=== PATIENT | male | born 1985 | race Caucasian/White ===

== ENCOUNTER 2017-01-31 18:42 | Emergency (ER) | payer SELFPAY ==
[2017-01-31 18:50] VITALS: BP 165/95; PULSE 82; TEMP 98.5; BMI 26.6
[2017-01-31] MEDS ORDERED: OXYMETAZOLINE 0.05% NASAL SOLUTION 15 ML BOTTLE NS PRN (20:36)
[2017-01-31] MEDS ORDERED: ACETAMINOPHEN 325 MG TABLET (FP) PO ONE (20:39)
[2017-01-31] MEDS ORDERED: ACETAMINOPHEN 325 MG TABLET (FP) ONE (21:02)
[2017-01-31] MEDS ORDERED: SODIUM CHLORIDE 0.9% 1000 ML INFUS.BAG IV ONE (21:04)
[2017-01-31 21:05] LABS: BASOPHIL 0.6 % (0-2.0); EOSINOPHIL 0.2 % (0-4.5); MCH 31.4 pg (25.7-33.7); MCHC 34.3 g/dl (32.0-35.9); MEAN CELL VOLUME 91.7 fl (80-96); MEAN PLT VOLUME 8.9 fl (7.5-11.1); NEUTROPHILS 84.4 % (42.8-82.8); PLATELET COUNT 278 K/MM3 (134-434); RDW 12.4 % (11.9-15.9)
[2017-01-31 21:09] LABS: VENOUS PH 7.44 (7.32-7.42)
[2017-01-31 21:37] LABS: ALBUMIN 3.1 g/dl (3.4-5.0); ALK PHOS 162 U/L (45-117); ANION GAP 10 (8-16); BILIRUBIN,TOTAL 0.4 mg/dL (0.2-1.0); CALCIUM 8.7 mg/dL (8.5-10.1); CO2 29 mmol/L (21-32); CREATININE 0.8 mg/dL (0.7-1.3); SGOT/AST 5 U/L (15-37); SGPT/ALT 13 U/L (12-78); TOT PROT 7.4 g/dl (6.4-8.2)
[2017-01-31 21:44] LABS: GLUCOSE,RANDOM 564 mg/dL (74-106)
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
[2017-01-31] MEDS ORDERED: INSULIN REGULAR HUMAN 100 UNITS/ML *VIAL IVPUSH ONE (22:18)
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
== END 2017-02-01 00:15 | disposition home or self-care (01) ==
LOC: JER 18:42 → JERFT 18:42 → JER 02-01 00:15
PROC: 3E033VG Introduction of Insulin into Peripheral Vein, Percutaneous Approach (ICD-10-PCS; principal; 2017-01-31)
PROC: 3E0337Z Introduction of Electrolytic and Water Balance Substance into Peripheral Vein, Percutaneous Approach (ICD-10-PCS; 2017-01-31)
DX: S09.92XD Unspecified injury of nose, subsequent encounter (principal); E13.8 Other specified diabetes mellitus with unspecified complications; R51 Headache; F17.210 Nicotine dependence, cigarettes, uncomplicated
CPT/HCPCS: 36415; 70486-TC; 80053; 82009; 82803; 83735; 85025; 99282-25

== ENCOUNTER 2017-02-03 21:12 | Inpatient (IN) | payer OTHER ==
[2017-02-03 21:52] VITALS: BMI 25.0
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
[2017-02-03] MEDS ORDERED: SODIUM CHLORIDE 0.9% 500 ML INFUS.BAG IV ONE (22:19)
[2017-02-03] MEDS ORDERED: AMPICILLIN NA/SULBACTAM NA 1.5 GM in SODIUM CHLORIDE 100 ML IVPB ONE (22:30)
[2017-02-03] MEDS ORDERED: VANCOMYCIN 1,000 MG VIAL (RESTRICTED TO ID ONLY) IVPB ONE (22:30)
[2017-02-03] MEDS ORDERED: VANCOMYCIN 1 GRAM (PRE-DOCKED) 250 ML IVPB ONE ×2 (22:58→23:22)
[2017-02-03 23:00] LABS: BASOPHIL 0.5 % (0-2.0); EOSINOPHIL 1.3 % (0-4.5); MCH 32.2 pg (25.7-33.7); MCHC 34.9 g/dl (32.0-35.9); MEAN CELL VOLUME 92.3 fl (80-96); MEAN PLT VOLUME 8.4 fl (7.5-11.1); NEUTROPHILS 69.6 % (42.8-82.8); PLATELET COUNT 325 K/MM3 (134-434); RDW 12.1 % (11.9-15.9); WHITE BLOOD COUNT 8.8 K/mm3 (4.0-10.0)
[2017-02-03 23:23] LABS: ALBUMIN 2.6 g/dl (3.4-5.0); ALK PHOS 155 U/L (45-117); ANION GAP 11 (8-16); BILIRUBIN,TOTAL 0.3 mg/dL (0.2-1.0); CALCIUM 8.4 mg/dL (8.5-10.1); CO2 28 mmol/L (21-32); CREATININE 0.8 mg/dL (0.7-1.3); SGOT/AST 7 U/L (15-37); SGPT/ALT 14 U/L (12-78); TOT PROT 6.9 g/dl (6.4-8.2)
[2017-02-03 23:25] LABS: GLUCOSE,RANDOM 649 mg/dL (74-106)
[2017-02-03 23:28] LABS: ACETONE SERUM NEGATIVE (NEGATIVE)
[2017-02-03] MEDS ORDERED: INSULIN REGULAR HUMAN 100 UNITS/ML *VIAL IVPUSH ONE (23:32)
[2017-02-04] MEDS ORDERED: ONDANSETRON 4 MG/2 ML VIAL IVPB PRN (00:05)
[2017-02-04] MEDS ORDERED: SODIUM CHLORIDE 1,000 ML IV STA ×2 (00:07→06:29)
[2017-02-04] MEDS ORDERED: INSULIN REGULAR HUMAN 100 UNITS/ML *VIAL ONE (00:26)
--- NOTE | 2017-02-04 00:31 | HP ---
Admitting History and Physical - Admission Chief Complaint: foot pain History of Present Illness: 31 non complaint diabetic w c/o right foot pain x 1 week. denies injury or puncture to foot. He reports difficulty w ambulation. non-complaint w diabetic meds. Reports increased swelling, pain and redness over last few days. denies sob, cp, n/v/f/c/d. PSH/PMH- diabetes social- construction equipment technician. Denies tobacco, rec drugs Famhx- NC Ros neg except for HPI Pex Gen- in nad, alert Skin- plantar foot ulcer with fluctulant area, TTP. cellulitis to dorsal foot. Neuro- alert, no seizures, no facial droop Resp- no cough, lungs ctab, no ronchi, no wheeze, no rales Cards- s1s2 heard, no JVD, RRR Hent- at/nc, abdoul, neck supple, trachea midline Gi- soft non tender, no guarding, no rebound, no distention Musk- normal arom ble/bue, Right foot swelling Psych- cooperative, no agitation prob list diabetic foot ulcer dm noncompliance hyperglycemia hyponatremia imaging: pending R foot x ray EKG reviewed a/p- 31 yo non-complaint M w h/o diabetes w c/o right foot pain x 1 week found to have cellulitis and abscess to right foot 1. Right diabetic plantar foot ulcer w abscess/cellulitis IV ABX Podiatry consult ID consult Trend inflammatory marker Pain control FU CT foot FU wound culture 2. DM T2 w hyperglycemia SSI Monitor F/S FU A1C Diabetic diet 3. Hyponatremia 2/2 hyperglycemia IVF Monitor labs DVT prophy scd, oob, hep sq fen diabetic diet IVF Dispo- requires > 2mn stay for abscess of foot History Source: Patient Limitations to Obtaining History: No Limitations - Smoking History Smoking history: Never smoked Have you smoked in the past 12 months: Yes Aproximately how many cigarettes per day: 3 - Alcohol/Substance Use Hx Alcohol Use: No Home Medications - Allergies Allergies/Adverse Reactions: Allergies Allergy/AdvReac Type Severity Reaction Status Date / Time No Known Allergies Allergy Verified 02/03/17 21:49 - Home Medications Home Medications: Ambulatory Orders NK [No Known Home Medication] 02/03/17 Physical Examination Vital Signs: Vital Signs Temperature 97.9 F 02/03/17 21:50 Pulse Rate 90 02/03/17 21:50 Respiratory Rate 20 02/03/17 21:50 Blood Pressure 146/88 02/03/17 21:50 O2 Sat by Pulse Oximetry (%) 100 02/03/17 21:50 Labs: CBC, BMP 02/03/17 22:47 02/03/17 22:47 Visit type - Emergency Visit Emergency Visit: Yes Care time: The patient presented to the Emergency Department on the above date and was hospitalized for further evaluation of their emergent condition. - New Patient This patient is new to me today: Yes Date on this admission: 02/04/17 - Critical Care Critical Care patient: No
[2017-02-04] MEDS ORDERED: HEPARIN NA (PORCINE) 5,000 UNITS/ML 1ML VIAL ONE (01:35)
[2017-02-04] MEDS: HEPARIN NA (PORCINE) 5,000 UNITS/ML 1ML VIAL SQ SCH ×4 (01:37→21:22)
[2017-02-04] MEDS: SODIUM CHLORIDE 1,000 ML IV SCH ×2 (02:20→05:58)
[2017-02-04] MEDS ORDERED: PIPERACILLIN/TAZOBACTAM 3.375 GM VIAL IVPB ONE ×5 (04:25→20:35)
[2017-02-04] MEDS ORDERED: DEXTROSE 5%-WATER - 50 ML IVPB ONE ×5 (04:25→20:36)
[2017-02-04] MEDS ORDERED: INSULIN (NOVOLOG) ASPART 100 UNITS/ML 10ML VIAL ONE ×2 (05:47→11:22)
[2017-02-04] MEDS: INSULIN SLIDING SCALE (NOVOLOG) 1 VIAL SQ SCH ×4 (05:59→21:23)
[2017-02-04] MEDS ORDERED: PIPERACILLIN/TAZOB 3.375 GM 3.375 GM in SODIUM CHLORIDE 50 ML IVPB ONE (06:00)
[2017-02-04 08:05] LABS: BASOPHIL 1.1 % (0-2.0); EOSINOPHIL 1.2 % (0-4.5); MCH 31.5 pg (25.7-33.7); MCHC 34.5 g/dl (32.0-35.9); MEAN CELL VOLUME 91.2 fl (80-96); MEAN PLT VOLUME 8.5 fl (7.5-11.1); NEUTROPHILS 69.9 % (42.8-82.8); PLATELET COUNT 307 K/MM3 (134-434); WHITE BLOOD COUNT 8.1 K/mm3 (4.0-10.0)
[2017-02-04 08:31] LABS: ALBUMIN 2.3 g/dl (3.4-5.0); ANION GAP 11 (8-16); BILIRUBIN,TOTAL 0.3 mg/dL (0.2-1.0); CALCIUM 8.1 mg/dL (8.5-10.1); CO2 25 mmol/L (21-32); CREATININE 0.4 mg/dL (0.7-1.3); SGPT/ALT 11 U/L (12-78)
[2017-02-04 08:33] LABS: ALK PHOS 121 U/L (45-117); SGOT/AST 4 U/L (15-37); TOT PROT 6.2 g/dl (6.4-8.2)
[2017-02-04 08:48] LABS: GLUCOSE,RANDOM 352 mg/dL (74-106)
[2017-02-04] MEDS ORDERED: VANCOMYCIN 1 GRAM (PRE-DOCKED) 1,000 MG/250 ML BAG IVPB SCH (10:00)
[2017-02-04 10:43] LABS: ERYTHROCYTE SEDIMENTATION RATE 81 mm/hr (0-10)
--- NOTE | 2017-02-04 11:33 | CONSULT ---
Consult - text type - Consultation Consultation Note: Podiatry Consult Called by Dr. Bo 31 y/o male admitted with uncontrolled blood sugars and diabetic foot infection right. Patient seen at bedside and reports pain worsening to right foot for 1 week. He denies trauma. He is newly diagnosed diabetic for a few months not taking PO meds as prescribed. He reports fever. PMH/PSH: diabetes allergies: NKDA Home Medication List Medication Instructions Recorded Confirmed Type NK [No Known Home Medication] 02/03/17 02/03/17 History Active Medications Generic Name Dose Route Start Last Admin Trade Name Freq PRN Reason Stop Dose Admin Acetaminophen 650 mg 02/04/17 00:05 Tylenol - PO Q4H PRN FEVER OR PAIN Heparin Sodium (Porcine) 5,000 unit 02/04/17 00:15 02/04/17 05:59 Heparin - SQ 5,000 unit TID ESTHER Administration Sodium Chloride 1,000 mls @ 125 mls/hr 02/04/17 00:15 02/04/17 05:58 Normal Saline - IV 125 mls/hr ASDIR ESTHER Administration Insulin Aspart 1 vial 02/04/17 07:00 02/04/17 05:59 Novolog Vial Sliding Scale - SQ 8 units ACHS ESTHER Administration Protocol Insulin Detemir 10 units 02/04/17 22:00 Levemir Vial SQ HS ESTHER Ketorolac Tromethamine 15 mg 02/04/17 00:05 Toradol Injection - IVPUSH 02/09/17 00:04 Q6H PRN PAIN Ondansetron HCl 4 mg 02/04/17 00:05 Zofran Injection IVPB Q4H PRN NAUSEA AND/OR VOMITING Piperacillin Sod/Tazobactam Sod 3.375 gm 02/04/17 03:00 Zosyn 3.375gm Ivpb (Pre-Docked) IVPB Q6H-IV ESTHER Protocol Vancomycin HCl 1,000 mg 02/04/17 10:00 Vancomycin (Pre-Docked) IVPB BID [facility] Protocol Vital Signs Period Temp Pulse Resp BP Sys/Adkins Pulse Ox Last 24 Hr 97.9 F-98.7 F 68-90 18-20 115-146/64-88 99-100 xrays: 3 views right foot, no sign of fracture, no bone erosion, no soft tissue emphysema CT right foot: no read by radiology, though no sign of abscess, fracture or erosion. GUSTAVO pedal pulses full to palpation bilateral, no signs of ischemia no gross orthopedic deformity tactile sensation grossly intact, muscle pwr, 5/5 all grps, guarded on right +erythema, +edema, +calor, +tenderness to right foot to the midfoot no fluctuance, no open lesions, extensive, interdigital maceration right foot, none noted on left. mild mycotic nail noted to hallux, not specifically tender. A/P Cellulitis, diabetic foot infection tinea pedis IV abx as per inf disease topical antifungal, interdigitally, ketoconazole BID no surgical intervention Seen by Dr. Chas Lozano
--- NOTE | 2017-02-04 11:38 | CONSULT ---
Consult Consult Specialty:: infectious diseases Reason for Consultation:: cellulitits rt leg - History of Present Illness Chief Complaint: pain rt leg and swellig History of Present Illness: 31 non complaint diabetic w c/o right foot pain x 1 week. denies injury or puncture to foot. He reports difficulty w ambulation. non-complaint w diabetic meds. Reports increased swelling, pain and redness over last few days. according to the patient his swelling has decreased patient currently has increased pain and amost of the pain according to him is on the doesum of the foot - History Source History Provided By: Patient, Medical Record Limitations to Obtaining History: Language Barrier - Alcohol/Substance Use Hx Alcohol Use: No - Smoking History Smoking history: Never smoked Have you smoked in the past 12 months: No Aproximately how many cigarettes per day: 3 Home Medications - Allergies Allergies/Adverse Reactions: Allergies Allergy/AdvReac Type Severity Reaction Status Date / Time No Known Allergies Allergy Verified 02/03/17 21:49 - Home Medications Home Medications: Ambulatory Orders NK [No Known Home Medication] 02/03/17 Review of Systems - Review of Systems Constitutional: reports: No Symptoms Eyes: reports: No Symptoms HENT: reports: No Symptoms Neck: reports: No Symptoms Cardiovascular: reports: No Symptoms Respiratory: reports: No Symptoms Gastrointestinal: reports: No Symptoms Genitourinary: reports: No Symptoms Musculoskeletal: reports: Muscle Pain, Other (pain on the dorsum of the foot) Integumentary: reports: Change in Color, Erythema Neurological: reports: No Symptoms Endocrine: reports: No Symptoms Hematology/Lymphatic: reports: No Symptoms Psychiatric: reports: No Symptoms Physical Exam Vital Signs: Vital Signs Temperature 98.1 F 02/04/17 11:10 Pulse Rate 75 02/04/17 11:10 Respiratory Rate 18 02/04/17 11:10 Blood Pressure 138/72 02/04/17 11:10 O2 Sat by Pulse Oximetry (%) 99 02/04/17 02:47 Constitutional: Yes: Well Nourished, Mild Distress Eyes: Yes: Conjunctiva Clear HENT: Yes: Atraumatic, Normocephalic Neck: Yes: Supple, Trachea Midline Cardiovascular: Yes: Regular Rate and Rhythm Respiratory: Yes: Regular, CTA Bilaterally Gastrointestinal: Yes: Normal Bowel Sounds, Soft Musculoskeletal: Yes: Other Extremities: Yes: Erythema (rt foot rt dorsum puffiness and mar present) Integumentary: Yes: Erythema Neurological: Yes: Alert, Oriented Labs: CBC, BMP 02/04/17 06:30 02/04/17 06:30 Imaging - Results Chest X-ray: Report Reviewed, Image Reviewed X-ray: Report Reviewed, Image Reviewed Cat Scan: Image Reviewed Assessment/Plan 31 yo non-complaint M w h/o diabetes w c/o right foot pain x 1 week found to have cellulitis and abscess to right foot 1. Right diabetic plantar foot ulcer w abscess/cellulitis 2. DM T2 w hyperglycemia 3. Hyponatremia 2/2 hyperglycemia plan'' will start patient on abx podiatry note noted await for imaging studies rest as per primary team
--- NOTE | 2017-02-04 11:51 | PN ---
Physical Exam: SUBJECTIVE: Patient seen and examined at bedside. Irritated about being woken up and having too many providers looking at his foot. OBJECTIVE: Vital Signs Period Temp Pulse Resp BP Sys/Adkins Pulse Ox Last 24 Hr 98 F-98.7 F 68-75 18-20 115-138/64-75 99-99 GENERAL: The patient is awake, alert, and fully oriented, in no acute distress. HEAD: Normal with no signs of trauma. EYES: PERRL, extraocular movements intact, sclera anicteric, conjunctiva clear. No ptosis. LUNGS: Breath sounds equal, clear to auscultation bilaterally, no wheezes, no crackles, no accessory muscle use. HEART: Regular rate and rhythm, S1, S2 without murmur, rub or gallop. ABDOMEN: Soft, nontender, nondistended, normoactive bowel sounds, no guarding, no rebound, no hepatosplenomegaly, no masses. EXTREMITIES: 2+ pulses, warm, well-perfused. RLE: Right foot is mildly swollen; on plantar aspect, just below toes, area of mild swelling; not erythematous; very tender; skin in center has a circular area of keratotic skin NEUROLOGICAL: Cranial nerves II through XII grossly intact. Normal speech, gait not observed. Laboratory Results - last 24 hr 02/04/17 02/04/17 02/04/17 05:58 06:30 06:30 WBC 8.1 RBC 3.93 L Hgb 12.4 Hct 35.8 MCV 91.2 MCH 31.5 MCHC 34.5 RDW 12.0 Plt Count 307 MPV 8.5 Neutrophils % 69.9 Lymphocytes % 22.2 Monocytes % 5.6 Eosinophils % 1.2 Basophils % 1.1 ESR 81 H Sodium 138 Potassium 3.8 Chloride 102 D Carbon Dioxide 25 Anion Gap 11 BUN 9 D Creatinine 0.4 L D Creat Clearance w eGFR > 60 POC Glucometer 347 Random Glucose 352 H* D Hemoglobin A1c % Calcium 8.1 L Total Bilirubin 0.3 AST 4 L D ALT 11 L D Alkaline Phosphatase 121 H D C-Reactive Protein 6.0 H D Total Protein 6.2 L Albumin 2.3 L 02/04/17 02/04/17 06:30 11:15 WBC RBC Hgb Hct MCV MCH MCHC RDW Plt Count MPV Neutrophils % Lymphocytes % Monocytes % Eosinophils % Basophils % ESR Sodium Potassium Chloride Carbon Dioxide Anion Gap BUN Creatinine Creat Clearance w eGFR POC Glucometer 323 Random Glucose Hemoglobin A1c % 13.8 H Calcium Total Bilirubin AST ALT Alkaline Phosphatase C-Reactive Protein Total Protein Albumin Active Medications Generic Name Dose Route Start Last Admin Trade Name Freq PRN Reason Stop Dose Admin Acetaminophen 650 mg 02/04/17 00:05 Tylenol - PO Q4H PRN FEVER OR PAIN Heparin Sodium (Porcine) 5,000 unit 02/04/17 00:15 02/04/17 05:59 Heparin - SQ 5,000 unit TID ESTHER Administration Sodium Chloride 1,000 mls @ 125 mls/hr 02/04/17 00:15 02/04/17 05:58 Normal Saline - IV 125 mls/hr ASDIR SETHER Administration Vancomycin HCl 1,250 mg/ 250 mls @ 250 mls/hr 02/05/17 10:00 Dextrose IVPB DAILY [facility] Protocol Piperacillin Sod/Tazobactam 50 mls @ 100 mls/hr 02/04/17 18:00 Sod 3.375 gm/ Dextrose IVPB Q8H-IV ESTHER Protocol Insulin Aspart 1 vial 02/04/17 07:00 02/04/17 11:25 Novolog Vial Sliding Scale - SQ 6 units ACHS ESTHER Administration Protocol Insulin Detemir 10 units 02/04/17 22:00 Levemir Vial SQ HS [facility] Ketorolac Tromethamine 15 mg 02/04/17 00:05 Toradol Injection - IVPUSH 02/09/17 00:04 Q6H PRN PAIN Ondansetron HCl 4 mg 02/04/17 00:05 Zofran Injection IVPB Q4H PRN NAUSEA AND/OR VOMITING Imaging 02/03 CXR: unremarkable 02/03 Xray right foot: minimal swelling, no bony involvement 02/04 CT RLE: soft tissue infiltration of plantar subq tissues adjacent to head of third metatarsal; no CT evidence of osteo Cellulitis of right foot Diabetic foot infection --no evidence of osteo --no surgical intervention indicated --started on Vanc and Zosyn Tinea pedis right foot --ketoconazole BID interdigitally Insulin dependent diabetes --HgbA1C 13.8 --initial glucose 649, no anion gap, serum acetone negative --Novolog sliding scale coverage --Levemir 10U qhs; reassess insulin needs over next 24 hours --diabetic nutritional teaching Hyponatremia, resolved F/E/N Fluids: NS @ 125mL/hr Electrolytes: replete as indicated Nutrition: diabetic diet DVT prophylaxis: subq heparin, oob, ambulation Physical therapy evaluation Dispo: continues to require inpatient care. Full code. Visit type - Emergency Visit Emergency Visit: Yes ED Registration Date: 02/04/17 Care time: The patient presented to the Emergency Department on the above date and was hospitalized for further evaluation of their emergent condition. - New Patient This patient is new to me today: Yes Date on this admission: 02/04/17 - Critical Care Critical Care patient: No
[2017-02-04] MEDS: KETOROLAC TROMETHAMINE 15 MG/ML VIAL IVPUSH PRN (12:40)
[2017-02-04] MEDS: PIPERACILLIN/TAZOB 3.375 GM 3.375 GM in DEXTROSE 5%-WATER - 50 ML IVPB SCH ×2 (12:51→17:57)
[2017-02-04] MEDS: VANCOMYCIN 1,250 MG in DEXTROSE 5%-WATER - 250 ML IVPB SCH (12:51)
--- NOTE | 2017-02-04 13:23 | EKG ---
Test Reason : Blood Pressure : / mmHG Vent. Rate : 071 BPM Atrial Rate : 071 BPM P-R Int : 174 ms QRS Dur : 088 ms QT Int : 396 ms P-R-T Axes : 054 007 028 degrees QTc Int : 430 ms NORMAL SINUS RHYTHM NORMAL ECG NO PREVIOUS ECGS AVAILABLE Confirmed by JAMEY JORDAN, CINDY ([id number]) on 02/04/2017 1:22:50 PM Referred By: Confirmed By:CINDY CONCEPCION MD
[2017-02-04] MEDS: PIPERACILLIN/TAZOB 3.375 GM/50 ML PRE-DOCKED IVPB SCH (14:01)
[2017-02-04 14:32] LABS: URINE APPEARANCE CLEAR; URINE BILIRUBIN NEGATIVE (NEGATIVE); URINE BLOOD 2+ (NEGATIVE); URINE COLOR LT. YELLOW; URINE GLUCOSE (UA) 3+ (NEGATIVE); URINE KETONE NEGATIVE (NEGATIVE); URINE LEUK ESTERASE NEGATIVE (NEGATIVE); URINE NITRITE NEGATIVE (NEGATIVE); URINE PROTEIN NEGATIVE (NEGATIVE); URINE UROBILINOGEN 0.2 mg/dL (0.2-1.0)
[2017-02-04 14:38] LABS: URINE RBC 4 /hpf (0-3)
[2017-02-04] MEDS: INSULIN DETEMIR 100 UNITS/ML MDV SQ SCH (21:22)
[2017-02-04] MEDS: ACETAMINOPHEN 325 MG TABLET (FP) PO PRN (21:26)
[2017-02-05] MEDS: PIPERACILLIN/TAZOB 3.375 GM 3.375 GM in DEXTROSE 5%-WATER - 50 ML IVPB SCH ×3 (01:52→17:40)
[2017-02-05] MEDS: SODIUM CHLORIDE 1,000 ML IV SCH (01:52)
[2017-02-05] MEDS: HEPARIN NA (PORCINE) 5,000 UNITS/ML 1ML VIAL SQ SCH ×3 (06:05→21:55)
[2017-02-05] MEDS: INSULIN SLIDING SCALE (NOVOLOG) 1 VIAL SQ SCH ×4 (06:06→21:56)
[2017-02-05 07:56] LABS: BASOPHIL 0.4 % (0-2.0); EOSINOPHIL 1.1 % (0-4.5); MCH 31.5 pg (25.7-33.7); MCHC 34.4 g/dl (32.0-35.9); MEAN CELL VOLUME 91.4 fl (80-96); MEAN PLT VOLUME 8.4 fl (7.5-11.1); PLATELET COUNT 325 K/MM3 (134-434); RDW 12.3 % (11.9-15.9); WHITE BLOOD COUNT 8.1 K/mm3 (4.0-10.0)
[2017-02-05 08:30] LABS: ALBUMIN 2.3 g/dl (3.4-5.0); ALK PHOS 132 U/L (45-117); ANION GAP 8 (8-16); BILIRUBIN,TOTAL 0.3 mg/dL (0.2-1.0); CALCIUM 8.6 mg/dL (8.5-10.1); CO2 27 mmol/L (21-32); CREATININE 0.5 mg/dL (0.7-1.3); GLUCOSE,RANDOM 226 mg/dL (74-106); MAGNESIUM 1.7 mg/dL (1.8-2.4); PHOSPHOROUS 4.1 mg/dL (2.5-4.9); SGOT/AST 13 U/L (15-37); SGPT/ALT 14 U/L (12-78); THYROID STIMULATING HORMONE 1.23 uIU/ml (0.358-3.74); TOT PROT 6.5 g/dl (6.4-8.2)
[2017-02-05] MEDS ORDERED: MAGNESIUM OXIDE 400 MG TABLET (FP) PO ONE (09:15)
[2017-02-05] MEDS ORDERED: DEXTROSE 5%-WATER - 50 ML IVPB ONE ×3 (09:43→21:29)
[2017-02-05] MEDS ORDERED: PT OWN MED DRAWER 7, Y5N ONE (09:43)
[2017-02-05] MEDS ORDERED: PIPERACILLIN/TAZOBACTAM 3.375 GM VIAL IVPB ONE ×3 (09:43→21:29)
[2017-02-05] MEDS: VANCOMYCIN 1,250 MG in DEXTROSE 5%-WATER - 250 ML IVPB SCH (12:21)
[2017-02-05] MEDS: ACETAMINOPHEN 325 MG TABLET (FP) PO PRN (12:32)
--- NOTE | 2017-02-05 13:40 | PN ---
Physical Exam: SUBJECTIVE: Patient seen and examined at bedside. Right foot painful. OBJECTIVE: Vital Signs Period Temp Pulse Resp BP Sys/Adkins Pulse Ox Last 24 Hr 98.1 F-98.2 F 70-76 18-20 114-129/61-78 99 GENERAL: The patient is awake, alert, and fully oriented, in no acute distress. HEAD: Normal with no signs of trauma. EYES: PERRL, extraocular movements intact, sclera anicteric, conjunctiva clear. No ptosis. LUNGS: Breath sounds equal, clear to auscultation bilaterally, no wheezes, no crackles, no accessory muscle use. HEART: Regular rate and rhythm, S1, S2 without murmur, rub or gallop. ABDOMEN: Soft, nontender, nondistended, normoactive bowel sounds, no guarding, no rebound, no hepatosplenomegaly, no masses. UPPER EXTREMITIES: 2+ pulses, warm, well-perfused. RLE: Right foot is mildly swollen; on plantar aspect, just below toes, area of mild swelling and circular area of callous, skin intact; area of erythema today on dorsal surface; foot very warm to touch, exqusitely tender NEUROLOGICAL: Cranial nerves II through XII grossly intact. Normal speech, gait not observed. Laboratory Results - last 24 hr 02/04/17 02/04/17 02/04/17 02:15 13:00 17:51 WBC RBC Hgb Hct MCV MCH MCHC RDW Plt Count MPV Neutrophils % Lymphocytes % Monocytes % Eosinophils % Basophils % Sodium Potassium Chloride Carbon Dioxide Anion Gap BUN Creatinine Creat Clearance w eGFR POC Glucometer [phone] Random Glucose Calcium Phosphorus Magnesium Total Bilirubin AST ALT Alkaline Phosphatase Total Protein Albumin TSH Urine Color Lt. yellow Urine Appearance Clear Urine pH 7.0 Ur Specific Tinnie 1.015 Urine Protein Negative Urine Glucose (UA) 3+ H Urine Ketones Negative Urine Blood 2+ H Urine Nitrite Negative Urine Bilirubin Negative Urine Urobilinogen 0.2 Ur Leukocyte Esterase Negative Urine RBC 4 Urine WBC None 02/04/17 02/05/17 02/05/17 21:20 02:00 05:55 WBC RBC Hgb Hct MCV MCH MCHC RDW Plt Count MPV Neutrophils % Lymphocytes % Monocytes % Eosinophils % Basophils % Sodium Potassium Chloride Carbon Dioxide Anion Gap BUN Creatinine Creat Clearance w eGFR POC Glucometer 324 225 214 Random Glucose Calcium Phosphorus Magnesium Total Bilirubin AST ALT Alkaline Phosphatase Total Protein Albumin TSH Urine Color Urine Appearance Urine pH Ur Specific Tinnie Urine Protein Urine Glucose (UA) Urine Ketones Urine Blood Urine Nitrite Urine Bilirubin Urine Urobilinogen Ur Leukocyte Esterase Urine RBC Urine WBC 02/05/17 02/05/17 02/05/17 06:30 06:30 06:30 WBC 8.1 RBC 4.06 Hgb 12.8 Hct 37.1 MCV 91.4 MCH 31.5 MCHC 34.4 RDW 12.3 Plt Count 325 MPV 8.4 Neutrophils % 75.0 Lymphocytes % 18.2 Monocytes % 5.3 Eosinophils % 1.1 Basophils % 0.4 Sodium 138 Potassium 4.0 Chloride 103 Carbon Dioxide 27 Anion Gap 8 BUN 9 Creatinine 0.5 L D Creat Clearance w eGFR > 60 POC Glucometer Random Glucose 226 H D Calcium 8.6 Phosphorus 4.1 Magnesium 1.7 L Total Bilirubin 0.3 AST 13 L D ALT 14 D Alkaline Phosphatase 132 H Total Protein 6.5 Albumin 2.3 L TSH Cancelled 1.23 Urine Color Urine Appearance Urine pH Ur Specific Tinnie Urine Protein Urine Glucose (UA) Urine Ketones Urine Blood Urine Nitrite Urine Bilirubin Urine Urobilinogen Ur Leukocyte Esterase Urine RBC Urine WBC 02/05/17 12:23 WBC RBC Hgb Hct MCV MCH MCHC RDW Plt Count MPV Neutrophils % Lymphocytes % Monocytes % Eosinophils % Basophils % Sodium Potassium Chloride Carbon Dioxide Anion Gap BUN Creatinine Creat Clearance w eGFR POC Glucometer 260 Random Glucose Calcium Phosphorus Magnesium Total Bilirubin AST ALT Alkaline Phosphatase Total Protein Albumin TSH Urine Color Urine Appearance Urine pH Ur Specific Tinnie Urine Protein Urine Glucose (UA) Urine Ketones Urine Blood Urine Nitrite Urine Bilirubin Urine Urobilinogen Ur Leukocyte Esterase Urine RBC Urine WBC Active Medications Generic Name Dose Route Start Last Admin Trade Name Freq PRN Reason Stop Dose Admin Acetaminophen 650 mg 02/04/17 00:05 02/05/17 12:32 Tylenol - PO 650 mg Q4H PRN Administration FEVER OR PAIN Heparin Sodium (Porcine) 5,000 unit 02/04/17 00:15 02/05/17 06:05 Heparin - SQ 5,000 unit TID ESTHER Administration Sodium Chloride 1,000 mls @ 125 mls/hr 02/04/17 00:15 02/05/17 01:52 Normal Saline - IV 125 mls/hr ASDIR ESTHER Administration Vancomycin HCl 1,250 mg/ 250 mls @ 166.667 mls/hr 02/04/17 13:00 02/05/17 12:21 Dextrose IVPB 166.667 mls/hr DAILY@1300 [facility] Administration Protocol Piperacillin Sod/Tazobactam 50 mls @ 100 mls/hr 02/04/17 12:00 02/05/17 10:40 Sod 3.375 gm/ Dextrose IVPB 100 mls/hr Q8H-IV ESTHER Administration Protocol Insulin Aspart 1 vial 02/04/17 07:00 02/05/17 12:23 Novolog Vial Sliding Scale - SQ 4 units ACHS [facility] Administration Protocol Insulin Detemir 10 units 02/04/17 22:00 02/04/17 21:22 Levemir Vial SQ 10 units HS ESTHER Administration Ketorolac Tromethamine 15 mg 02/04/17 00:05 02/04/17 12:40 Toradol Injection - IVPUSH 02/09/17 00:04 15 mg Q6H PRN Administration PAIN Ondansetron HCl 4 mg 02/04/17 00:05 Zofran Injection IVPB Q4H PRN NAUSEA AND/OR VOMITING Imaging 02/03 CXR: unremarkable 02/03 Xray right foot: minimal swelling, no bony involvement 02/04 CT RLE: soft tissue infiltration of plantar subq tissues adjacent to head of third metatarsal; no CT evidence of osteo ASSESSMENT/PLAN Cellulitis of right foot Diabetic foot infection --no evidence of osteo --no surgical intervention indicated --continue Vanc and Zosyn Tinea pedis right foot --ketoconazole BID interdigitally Insulin dependent diabetes --HgbA1C 13.8 --initial glucose 649, no anion gap, serum acetone negative; serum glucose and fingersticks now in 200s --Novolog sliding scale coverage --Levemir 10U qhs --endocrine consult requested --diabetic nutritional teaching Hyponatremia, resolved F/E/N Fluids: PO intake adequate Electrolytes: replete as indicated Nutrition: diabetic diet DVT prophylaxis: subq heparin, oob, ambulation Physical therapy evaluation done: crutch walking successfully Dispo: continues to require inpatient care. Barriers to discharge: undocumented , no insurance. Full Code. Visit type - Emergency Visit Emergency Visit: Yes ED Registration Date: 02/04/17 Care time: The patient presented to the Emergency Department on the above date and was hospitalized for further evaluation of their emergent condition. - New Patient This patient is new to me today: No - Critical Care Critical Care patient: No
--- NOTE | 2017-02-05 14:10 | PN ---
Progress Note, Physician History of Present Illness: rt foot still painful ct scan result noted - Current Medication List Current Medications: Active Medications Acetaminophen (Tylenol -) 650 mg PO Q4H PRN PRN Reason: FEVER OR PAIN Last Admin: 02/05/17 12:32 Dose: 650 mg Heparin Sodium (Porcine) (Heparin -) 5,000 unit SQ TID ESTHER Last Admin: 02/05/17 06:05 Dose: 5,000 unit Vancomycin HCl 1,250 mg/ (Dextrose) 250 mls @ 166.667 mls/hr IVPB DAILY@1300 ESTHER PRN Reason: Protocol Last Admin: 02/05/17 12:21 Dose: 166.667 mls/hr Piperacillin Sod/Tazobactam (Sod 3.375 gm/ Dextrose) 50 mls @ 100 mls/hr IVPB Q8H-IV ESTHER PRN Reason: Protocol Last Admin: 02/05/17 10:40 Dose: 100 mls/hr Insulin Aspart (Novolog Vial Sliding Scale -) 1 vial SQ ACHS ESTHER PRN Reason: Protocol Last Admin: 02/05/17 12:23 Dose: 4 units Insulin Detemir (Levemir Vial) 10 units SQ HS ESTHER Last Admin: 02/04/17 21:22 Dose: 10 units Ketorolac Tromethamine (Toradol Injection -) 15 mg IVPUSH Q6H PRN PRN Reason: PAIN Stop: 02/09/17 00:04 Last Admin: 02/04/17 12:40 Dose: 15 mg Ondansetron HCl (Zofran Injection) 4 mg IVPB Q4H PRN PRN Reason: NAUSEA AND/OR VOMITING - Objective Vital Signs: Vital Signs Temperature 98.2 F 02/05/17 08:02 Pulse Rate 70 02/05/17 08:02 Respiratory Rate 20 02/05/17 08:02 Blood Pressure 129/78 02/05/17 08:02 O2 Sat by Pulse Oximetry (%) 99 02/04/17 21:00 Constitutional: Yes: Calm, Mild Distress Cardiovascular: Yes: Regular Rate and Rhythm Respiratory: Yes: Regular, CTA Bilaterally Gastrointestinal: Yes: Normal Bowel Sounds, Soft Musculoskeletal: Yes: WNL Extremities: Yes: Other Neurological: Yes: Alert, Oriented Psychiatric: Yes: Alert Labs: CBC, BMP 02/05/17 06:30 02/05/17 06:30 Assessment/Plan 31 yo non-complaint M w h/o diabetes w c/o right foot pain x 1 week found to have cellulitis and abscess to right foot 1. Right diabetic plantar foot ulcer w abscess/cellulitis 2. DM T2 w hyperglycemia 3. Hyponatremia 2/2 hyperglycemia plan'' continue current mgmt consider mri podiatry thought process rest as per primary team
[2017-02-05] MEDS ORDERED: INSULIN (NOVOLOG) ASPART 100 UNITS/ML 10ML VIAL ONE (21:50)
[2017-02-05] MEDS: INSULIN DETEMIR 100 UNITS/ML MDV SQ SCH (21:56)
[2017-02-06] MEDS: PIPERACILLIN/TAZOB 3.375 GM 3.375 GM in DEXTROSE 5%-WATER - 50 ML IVPB SCH ×3 (02:23→17:17)
[2017-02-06] MEDS: INSULIN SLIDING SCALE (NOVOLOG) 1 VIAL SQ SCH ×4 (06:14→21:03)
[2017-02-06] MEDS: HEPARIN NA (PORCINE) 5,000 UNITS/ML 1ML VIAL SQ SCH ×3 (06:16→21:06)
--- NOTE | 2017-02-06 07:39 | PN ---
Progress Note (short form) - Note Progress Note: Seen at bedside in NAD Afebrile VSS Dressing CDI Denies CP SOB calf pain (++) tenderness plantar aspect of right foot (+) edema (+) erythema No signs of a wound (+) Interdigital maceration and plantar scaling consistent with tinea pedis NO signs of ascending cellulitis WBC wnl elevated ESR Impression Diabetic foot infection right foot Plan: RECC MRI right foot to assess for abscess and would likely need I&D Cont IVABX pending MRI
[2017-02-06] MEDS ORDERED: PIPERACILLIN/TAZOBACTAM 3.375 GM VIAL IVPB ONE ×3 (09:25→16:54)
[2017-02-06] MEDS ORDERED: DEXTROSE 5%-WATER - 50 ML IVPB ONE ×3 (09:25→16:54)
--- NOTE | 2017-02-06 09:25 | PN ---
Physical Exam: SUBJECTIVE: Patient seen and examined at bedside. C/o pain to plantar surface of right foot. OBJECTIVE: Vital Signs Period Temp Pulse Resp BP Sys/Adkins Pulse Ox Last 24 Hr 97.2 F-98.6 F 64-67 16-20 105-127/66-85 98 GENERAL: The patient is awake, alert, and fully oriented, in no acute distress. LUNGS: Breath sounds equal, clear to auscultation bilaterally, no wheezes, no crackles, no accessory muscle use. HEART: Regular rate and rhythm, S1, S2 without murmur, rub or gallop. ABDOMEN: Soft, nontender, nondistended, normoactive bowel sounds, no guarding, no rebound, no hepatosplenomegaly, no masses. EXTREMITIES: 2+ pulses, warm, well-perfused, no edema. Plantar surface edematous and tender to palpation at MTP of right great toe. No wound present at tenderness. Interdigital maceration present with scaly white growth to plantar surface of right foot. NEUROLOGICAL: Cranial nerves II through XII grossly intact. Normal speech, gait not observed. PSYCH: Normal mood, normal affect. Laboratory Results - last 24 hr 02/05/17 02/05/17 02/05/17 12:23 17:41 21:38 POC Glucometer 260 233 265 02/06/17 06:14 POC Glucometer 215 Active Medications Generic Name Dose Route Start Last Admin Trade Name Freq PRN Reason Stop Dose Admin Acetaminophen 650 mg 02/04/17 00:05 02/05/17 12:32 Tylenol - PO 650 mg Q4H PRN Administration FEVER OR PAIN Heparin Sodium (Porcine) 5,000 unit 02/04/17 00:15 02/06/17 06:16 Heparin - SQ 5,000 unit TID ESTHER Administration Vancomycin HCl 1,250 mg/ 250 mls @ 166.667 mls/hr 02/04/17 13:00 02/05/17 12:21 Dextrose IVPB 166.667 mls/hr DAILY@1300 ESTHER Administration Protocol Piperacillin Sod/Tazobactam 50 mls @ 100 mls/hr 02/04/17 12:00 02/06/17 02:23 Sod 3.375 gm/ Dextrose IVPB 100 mls/hr Q8H-IV ESTHER Administration Protocol Insulin Aspart 1 vial 02/04/17 07:00 02/06/17 06:14 Novolog Vial Sliding Scale - SQ 2 units ACHS ESTHER Administration Protocol Insulin Detemir 10 units 02/04/17 22:00 02/05/17 21:56 Levemir Vial SQ 10 units HS ESTHER Administration Ketorolac Tromethamine 15 mg 02/04/17 00:05 02/04/17 12:40 Toradol Injection - IVPUSH 02/09/17 00:04 15 mg Q6H PRN Administration PAIN Ondansetron HCl 4 mg 02/04/17 00:05 Zofran Injection IVPB Q4H PRN NAUSEA AND/OR VOMITING ASSESSMENT/PLAN: A: 31 yo man with h/o DM with diabetic foot infection P: 1. Right Plantar cellulitis - Xray and CT without signs of osteo - MRI recommended by Podiatry- pending - ID Faustino following - Vanc and Zosyn 2. Diabetes- insulin dependant - poorly controlled- A1c- 13.6 - FSBG qACHS - ISS - Levemir qHS 3. Tinea pedis - wash feet BID - ketoconazole bid 4. Hyponatremia - resolved 5. F/E/N - diabetic diet - replete prn 6. PPX - sqh - OOB as tolerated Dispo- requires continued inpatient treatment of his acute medical condition Visit type - Emergency Visit Emergency Visit: Yes ED Registration Date: 02/04/17 Care time: The patient presented to the Emergency Department on the above date and was hospitalized for further evaluation of their emergent condition. - New Patient This patient is new to me today: Yes Date on this admission: 02/15/17 - Critical Care Critical Care patient: No
[2017-02-06] MEDS: VANCOMYCIN 1,250 MG in DEXTROSE 5%-WATER - 250 ML IVPB SCH (12:53)
--- NOTE | 2017-02-06 13:36 | PN ---
Progress Note, Physician History of Present Illness: continues to ahve pain in the leg otherwise no complaints - Current Medication List Current Medications: Active Medications Acetaminophen (Tylenol -) 650 mg PO Q4H PRN PRN Reason: FEVER OR PAIN Last Admin: 02/05/17 12:32 Dose: 650 mg Heparin Sodium (Porcine) (Heparin -) 5,000 unit SQ TID ESTHER Last Admin: 02/06/17 06:16 Dose: 5,000 unit Vancomycin HCl 1,250 mg/ (Dextrose) 250 mls @ 166.667 mls/hr IVPB DAILY@1300 ESTHER PRN Reason: Protocol Last Admin: 02/06/17 12:53 Dose: 166.667 mls/hr Piperacillin Sod/Tazobactam (Sod 3.375 gm/ Dextrose) 50 mls @ 100 mls/hr IVPB Q8H-IV ESTHER PRN Reason: Protocol Last Admin: 02/06/17 09:46 Dose: 100 mls/hr Insulin Aspart (Novolog Vial Sliding Scale -) 1 vial SQ ACHS ESTHER PRN Reason: Protocol Last Admin: 02/06/17 12:52 Dose: 4 units Insulin Detemir (Levemir Vial) 10 units SQ HS ESTHER Last Admin: 02/05/17 21:56 Dose: 10 units Ketorolac Tromethamine (Toradol Injection -) 15 mg IVPUSH Q6H PRN PRN Reason: PAIN Stop: 02/09/17 00:04 Last Admin: 02/04/17 12:40 Dose: 15 mg Ondansetron HCl (Zofran Injection) 4 mg IVPB Q4H PRN PRN Reason: NAUSEA AND/OR VOMITING - Objective Vital Signs: Vital Signs Temperature 98.1 F 02/06/17 09:00 Pulse Rate 77 02/06/17 09:00 Respiratory Rate 16 02/06/17 09:00 Blood Pressure 128/63 02/06/17 09:00 O2 Sat by Pulse Oximetry (%) 98 02/06/17 09:00 Constitutional: Yes: Calm, Mild Distress Cardiovascular: Yes: Regular Rate and Rhythm Respiratory: Yes: Regular, CTA Bilaterally Gastrointestinal: Yes: Normal Bowel Sounds, Soft Musculoskeletal: Yes: Other Extremities: Yes: Other (pain in the foot) Neurological: Yes: Alert, Oriented Psychiatric: Yes: Alert, Oriented Labs: CBC, BMP 02/05/17 06:30 02/05/17 06:30 Assessment/Plan 31 yo non-complaint M w h/o diabetes w c/o right foot pain x 1 week found to have cellulitis and abscess to right foot 1. Right diabetic plantar foot ulcer w abscess/cellulitis 2. DM T2 w hyperglycemia 3. Hyponatremia 2/2 hyperglycemia plan'' await for mri continue abx might need it to be drained rest as per primary
--- NOTE | 2017-02-06 17:15 | CONSULT ---
Consult Consult Specialty:: Endocrinology Reason for Consultation:: Hyperglycemia - History of Present Illness Chief Complaint: Rt foot pain History of Present Illness: This is a 31-year-old male, with history of DM for about one year on no medications, who presented to the ED with one week of right foot pain. stated that the pt had not been compliant with any of his medications and does not watch his diet. He was seen in the ED on 02/01 for nose swelling/pain that has now resolved. Pt c/o polyuria for a few weeks. - History Source History Provided By: Patient, Medical Record Limitations to Obtaining History: Uncooperative - Past Medical History Endocrine: Yes: Diabetes Mellitus - Alcohol/Substance Use Hx Alcohol Use: No - Smoking History Smoking history: Never smoked Have you smoked in the past 12 months: No Aproximately how many cigarettes per day: 3 Home Medications - Allergies Allergies/Adverse Reactions: Allergies Allergy/AdvReac Type Severity Reaction Status Date / Time No Known Allergies Allergy Verified 02/03/17 21:49 - Home Medications Home Medications: Ambulatory Orders NK [No Known Home Medication] 02/03/17 Review of Systems - Review of Systems Constitutional: reports: No Symptoms Eyes: reports: No Symptoms HENT: reports: No Symptoms Neck: reports: No Symptoms Cardiovascular: reports: No Symptoms Respiratory: reports: No Symptoms Gastrointestinal: reports: No Symptoms Genitourinary: reports: Other (polyuria) Musculoskeletal: reports: No Symptoms Integumentary: reports: No Symptoms Neurological: reports: No Symptoms Endocrine: reports: No Symptoms Hematology/Lymphatic: reports: No Symptoms Physical Exam Vital Signs: Vital Signs Temperature 98.9 F 02/06/17 13:57 Pulse Rate 64 02/06/17 13:57 Respiratory Rate 18 02/06/17 13:57 Blood Pressure 104/60 02/06/17 13:57 O2 Sat by Pulse Oximetry (%) 98 02/06/17 09:00 Constitutional: Yes: No Distress, Calm Eyes: Yes: Conjunctiva Clear, EOM Intact HENT: Yes: Atraumatic, Normocephalic Neck: Yes: Supple, Trachea Midline Cardiovascular: Yes: Regular Rate and Rhythm Respiratory: Yes: Regular, CTA Bilaterally Gastrointestinal: Yes: Normal Bowel Sounds, Soft Musculoskeletal: Yes: WNL Extremities: Yes: Other (Swelling front of foot over plantar surface) Labs: CBC, BMP 02/05/17 06:30 02/05/17 06:30 Problem List - Problems (1) Diabetic foot Code(s): E11.8 - TYPE 2 DIABETES MELLITUS WITH UNSPECIFIED COMPLICATIONS (2) Uncontrolled diabetes mellitus Code(s): E11.65 - TYPE 2 DIABETES MELLITUS WITH HYPERGLYCEMIA Assessment/Plan AP: Right diabetic plantar foot ulcer w abscess/cellulitis DM T2 w hyperglycemia IV abx Local wound care Increase Levemir 15 units daily at HS Novolog SS coverage] Nutrition consult will f/u
[2017-02-06] MEDS ORDERED: INSULIN SLIDING SCALE (NOVOLOG) 1 VIAL SQ SCH (17:22)
[2017-02-06] MEDS: KETOROLAC TROMETHAMINE 15 MG/ML VIAL IVPUSH PRN (20:59)
[2017-02-06] MEDS ORDERED: INSULIN DETEMIR 100 UNITS/ML MDV SQ SCH (22:00)
[2017-02-07] MEDS: PIPERACILLIN/TAZOB 3.375 GM 3.375 GM in DEXTROSE 5%-WATER - 50 ML IVPB SCH ×3 (01:21→19:01)
[2017-02-07] MEDS: HEPARIN NA (PORCINE) 5,000 UNITS/ML 1ML VIAL SQ SCH ×3 (06:42→21:25)
[2017-02-07] MEDS: INSULIN SLIDING SCALE (NOVOLOG) 1 VIAL SQ SCH ×4 (06:46→21:29)
[2017-02-07] MEDS: KETOROLAC TROMETHAMINE 15 MG/ML VIAL IVPUSH PRN ×2 (09:28→19:10)
[2017-02-07] MEDS: ACETAMINOPHEN 325 MG TABLET (FP) PO PRN ×2 (09:34→19:10)
--- NOTE | 2017-02-07 09:47 | PN ---
Progress Note (short form) - Note Progress Note: Podiatry: Seen and evaluated at bedside, NAD. Has significant persistent tenderness to the right foot. MRI obtained yesterday. Afebrile, VSS. GUSTAVO: R foot: significant tenderness to the forefoot of the right foot. There is significant tenderness to the 2nd, 3rd and 4th MTPJs. There is a hyperkeratotic lesion sub-2nd metatarsal. There is scaling, dry skin to the right foot. There is no fluctuance appreciated, no streaking cellulitis, no soft tissue crepitus, no lymphangitis, no purulent drainage. ROM within normal limits. WBC: 8.1 ESR: 81 R foot MRI: fluid collection inferolateral 3rd metatarsal head with patchy bone marrow edema Imp: 31 year old DM M with R foot evaluate for abscess 1. C/w IV abx per ID 2. Encouraged rest and elevation of foot 3. Glycemic control 4. MRI reviewed with patient. Will discuss with radiologist to read the MRI in more detail before planning any surgical procedure. 5. Will follow. Sherman Mondragon DPM
[2017-02-07] MEDS ORDERED: DEXTROSE 5%-WATER - 50 ML IVPB ONE ×2 (10:05→18:44)
[2017-02-07] MEDS ORDERED: PIPERACILLIN/TAZOBACTAM 3.375 GM VIAL IVPB ONE ×2 (10:05→18:44)
[2017-02-07 10:59] LABS: BASOPHIL 0.3 % (0-2.0); EOSINOPHIL 1.8 % (0-4.5); MCH 31.4 pg (25.7-33.7); MCHC 34.2 g/dl (32.0-35.9); MEAN CELL VOLUME 91.9 fl (80-96); MEAN PLT VOLUME 7.6 fl (7.5-11.1); NEUTROPHILS 75.1 % (42.8-82.8); PLATELET COUNT 370 K/MM3 (134-434); RDW 12.2 % (11.9-15.9); WHITE BLOOD COUNT 7.2 K/mm3 (4.0-10.0)
[2017-02-07 11:11] LABS: ANION GAP 4 (8-16); CALCIUM 9.3 mg/dL (8.5-10.1); CO2 33 mmol/L (21-32); CREATININE 0.7 mg/dL (0.7-1.3); GLUCOSE,RANDOM 298 mg/dL (74-106); URIC ACID 3.2 mg/dL (2.6-7.2)
[2017-02-07] MEDS ORDERED: INSULIN (NOVOLOG) ASPART 100 UNITS/ML 10ML VIAL ONE (11:23)
--- NOTE | 2017-02-07 14:09 | PN ---
Progress Note, Physician History of Present Illness: doing well no issues pain present - Current Medication List Current Medications: Active Medications Acetaminophen (Tylenol -) 650 mg PO Q4H PRN PRN Reason: FEVER OR PAIN Last Admin: 02/07/17 09:34 Dose: 650 mg Heparin Sodium (Porcine) (Heparin -) 5,000 unit SQ TID [facility] Last Admin: 02/07/17 06:42 Dose: 5,000 unit Vancomycin HCl 1,250 mg/ (Dextrose) 250 mls @ 166.667 mls/hr IVPB DAILY@1300 [facility] PRN Reason: Protocol Last Admin: 02/06/17 12:53 Dose: 166.667 mls/hr Piperacillin Sod/Tazobactam (Sod 3.375 gm/ Dextrose) 50 mls @ 100 mls/hr IVPB Q8H-IV [facility] PRN Reason: Protocol Last Admin: 02/07/17 10:06 Dose: 100 mls/hr Insulin Aspart (Novolog Vial Sliding Scale -) 1 vial SQ TIDAC [facility] PRN Reason: Protocol Last Admin: 02/07/17 11:26 Dose: 8 units Insulin Aspart (Novolog Vial Sliding Scale -) 1 vial SQ HS [facility] PRN Reason: Protocol Last Admin: 02/06/17 21:03 Dose: 6 units Insulin Detemir (Levemir Vial) 15 units SQ HS [facility] Last Admin: 02/06/17 21:06 Dose: 15 units Ketorolac Tromethamine (Toradol Injection -) 15 mg IVPUSH Q6H PRN PRN Reason: PAIN Stop: 02/09/17 00:04 Last Admin: 02/07/17 09:28 Dose: 15 mg Ondansetron HCl (Zofran Injection) 4 mg IVPB Q4H PRN PRN Reason: NAUSEA AND/OR VOMITING - Objective Vital Signs: Vital Signs Temperature 97.5 F L 02/07/17 10:00 Pulse Rate 68 02/07/17 10:00 Respiratory Rate 20 02/07/17 10:00 Blood Pressure 104/75 02/07/17 10:00 O2 Sat by Pulse Oximetry (%) 98 02/06/17 21:00 Constitutional: Yes: No Distress, Calm Cardiovascular: Yes: Regular Rate and Rhythm Respiratory: Yes: Regular, CTA Bilaterally Gastrointestinal: Yes: Normal Bowel Sounds, Soft Musculoskeletal: Yes: WNL Extremities: Yes: Other Neurological: Yes: Alert, Oriented Labs: CBC, BMP 02/07/17 10:30 02/07/17 10:30 Assessment/Plan 31 yo non-complaint M w h/o diabetes w c/o right foot pain x 1 week found to have cellulitis and abscess to right foot 1. Right diabetic plantar foot ulcer w abscess/cellulitis 2. DM T2 w hyperglycemia 3. Hyponatremia 2/2 hyperglycemia plan'' patient doing well looked at the mri i think we should explore the wound then we will decide further
[2017-02-07] MEDS: VANCOMYCIN 1,250 MG in DEXTROSE 5%-WATER - 250 ML IVPB SCH (14:17)
--- NOTE | 2017-02-07 14:30 | PN ---
Physical Exam: SUBJECTIVE: Patient seen and examined. He c/o of R foot pain only it is very tender to light touch OBJECTIVE: Vital Signs Period Temp Pulse Resp BP Sys/Adkins Pulse Ox Last 24 Hr 97.5 F-98.5 F 65-74 18-20 104-130/74-79 98 PE Neuro: alert, awake, cn 2-12intact Pulm: CTAB CV: s1 s2 rrr no mrg Abd: s nt nd + bs Ext: R foot plantar tenderness, swelling, planter wound center open, no draining , mild fluctuance Laboratory Results - last 24 hr 02/06/17 02/07/17 02/07/17 21:01 06:45 10:30 WBC RBC Hgb Hct MCV MCH MCHC RDW Plt Count MPV Neutrophils % Lymphocytes % Monocytes % Eosinophils % Basophils % Sodium 136 Potassium 4.1 Chloride 99 Carbon Dioxide 33 H D Anion Gap 4 L BUN 17 D Creatinine 0.7 D POC Glucometer 329 207 Random Glucose 298 H D Uric Acid 3.2 Calcium 9.3 Magnesium 2.0 Vancomycin Pre-Dose 02/07/17 02/07/17 02/07/17 10:30 11:19 12:30 WBC 7.2 RBC 4.27 Hgb 13.4 Hct 39.2 MCV 91.9 MCH 31.4 MCHC 34.2 RDW 12.2 Plt Count 370 MPV 7.6 Neutrophils % 75.1 Lymphocytes % 17.8 Monocytes % 5.0 Eosinophils % 1.8 Basophils % 0.3 Sodium Potassium Chloride Carbon Dioxide Anion Gap BUN Creatinine POC Glucometer 295 Random Glucose Uric Acid Calcium Magnesium Vancomycin Pre-Dose 0.822 L* Active Medications Generic Name Dose Route Start Last Admin Trade Name Helioq PRN Reason Stop Dose Admin Acetaminophen 650 mg 02/04/17 00:05 02/07/17 09:34 Tylenol - PO 650 mg Q4H PRN Administration FEVER OR PAIN Heparin Sodium (Porcine) 5,000 unit 02/04/17 00:15 02/07/17 06:42 Heparin - SQ 5,000 unit TID [facility] Administration Vancomycin HCl 1,250 mg/ 250 mls @ 166.667 mls/hr 02/04/17 13:00 02/07/17 14:17 Dextrose IVPB 166.667 mls/hr DAILY@1300 [facility] Administration Protocol Piperacillin Sod/Tazobactam 50 mls @ 100 mls/hr 02/04/17 12:00 02/07/17 10:06 Sod 3.375 gm/ Dextrose IVPB 100 mls/hr Q8H-IV [facility] Administration Protocol Insulin Aspart 1 vial 02/07/17 07:00 02/07/17 11:26 Novolog Vial Sliding Scale - SQ 8 units TIDAC [facility] Administration Protocol Insulin Aspart 1 vial 02/06/17 22:00 02/06/17 21:03 Novolog Vial Sliding Scale - SQ 6 units HS [facility] Administration Protocol Insulin Detemir 15 units 02/06/17 22:00 02/06/17 21:06 Levemir Vial SQ 15 units HS [facility] Administration Ketorolac Tromethamine 15 mg 02/04/17 00:05 02/07/17 09:28 Toradol Injection - IVPUSH 02/09/17 00:04 15 mg Q6H PRN Administration PAIN Ondansetron HCl 4 mg 02/04/17 00:05 Zofran Injection IVPB Q4H PRN NAUSEA AND/OR VOMITING Imaging: - MRI Right food: R foot MRI: fluid collection inferolateral 3rd metatarsal head with patchy bone marrow edema Assessment: 31 yo man with h/o DM with diabetic foot infection Plan: 1. Right Plantar cellulitis/abscess - MRI reviewed, abscess noted - Further detail reading of MRI to ensure prior to taking surgical intervention - Continue Vanco/Zosyn - Uric acid level wnl - Discussed with podiatry 2. DM II , uncontrolled - Levemir 15units HS - ISS, BGM ACHS Visit type - Emergency Visit Emergency Visit: Yes ED Registration Date: 02/04/17 Care time: The patient presented to the Emergency Department on the above date and was hospitalized for further evaluation of their emergent condition. - New Patient This patient is new to me today: Yes Date on this admission: 02/07/17 - Critical Care Critical Care patient: No
[2017-02-07] MEDS ORDERED: INSULIN DETEMIR 100 UNITS/ML MDV SQ SCH (22:00)
[2017-02-08] MEDS: PIPERACILLIN/TAZOB 3.375 GM 3.375 GM in DEXTROSE 5%-WATER - 50 ML IVPB SCH ×3 (02:15→18:33)
[2017-02-08] MEDS ORDERED: PIPERACILLIN/TAZOBACTAM 3.375 GM VIAL IVPB ONE ×3 (03:00→17:47)
[2017-02-08] MEDS ORDERED: DEXTROSE 5%-WATER - 50 ML IVPB ONE ×3 (03:01→17:47)
[2017-02-08] MEDS: HEPARIN NA (PORCINE) 5,000 UNITS/ML 1ML VIAL SQ SCH ×3 (06:22→21:59)
[2017-02-08] MEDS: INSULIN SLIDING SCALE (NOVOLOG) 1 VIAL SQ SCH ×3 (06:25→22:00)
[2017-02-08] MEDS ORDERED: INSULIN (NOVOLOG) ASPART 100 UNITS/ML 10ML VIAL ONE (06:44)
[2017-02-08] MEDS ORDERED: LIDOCAINE HCL 2% (20ML MULTI-DOSE VIAL) NR ONE (07:15)
[2017-02-08] MEDS ORDERED: BUPIVACAINE HCL/PF 0.5% (5MG/ML) 10 ML VIAL ONE (07:15)
[2017-02-08] MEDS ORDERED: LIDOCAINE HCL 1%, 10 MG/ML (20ML VIAL) ONE (07:15)
[2017-02-08] MEDS ORDERED: PROPOFOL 20 ML ONE ×4 (07:17)
[2017-02-08] MEDS ORDERED: ePHEDrine SULFATE 50 MG/1 ML AMPULE ONE (07:17)
[2017-02-08] MEDS ORDERED: MIDAZOLAM HCL 2 MG/2 ML SINGLE DOSE VIAL ONE (07:18)
[2017-02-08] MEDS ORDERED: SUCCINYLCHOLINE CHLORIDE 200 MG/10 ML VIAL ONE (07:18)
[2017-02-08] MEDS ORDERED: DESFLURANE GAS 240 ML BOTTLE IH ONE (07:46)
[2017-02-08] MEDS ORDERED: HYDROmorphone HCL/PF 1 MG/ML VIAL (FOR PYXIS CHARGING ONLY) ONE (08:06)
[2017-02-08] MEDS ORDERED: LACTATED RINGERS SOLUTION 1,000 ML IV SCH ×2 (08:15→08:43)
--- NOTE | 2017-02-08 08:33 | OP ---
Operative Note - Note: Operative Date: 02/08/17 Pre-Operative Diagnosis: Right foot abscess and diabetic foot infection Operation: Right foot incision and drainage Findings: Abscess right foot probing to third metatarsophalangeal joint Post-Operative Diagnosis: Same as Pre-op Surgeon: Narciso Mondragon Anesthesia: General, Local Specimens Removed: abscess, right foot Estimated Blood Loss (mls): 20 Instrument used (Debridements only): #15 blade and sterile scissor Operative Report Dictated: Yes
[2017-02-08] MEDS ORDERED: ONDANSETRON 4 MG/2 ML VIAL IVPB PRN (08:43)
[2017-02-08] MEDS ORDERED: KETOROLAC TROMETHAMINE 15 MG/ML VIAL IVPUSH PRN (08:43)
[2017-02-08] MEDS ORDERED: PIPERACILLIN/TAZOB 3.375 GM 3.375 GM in DEXTROSE 5%-WATER - 50 ML IVPB ONE (09:30)
[2017-02-08] MEDS ORDERED: PIPERACILLIN/TAZOB 3.375 GM 3.375 GM in DEXTROSE 5%-WATER - 50 ML IVPB SCH (10:00)
[2017-02-08] MEDS ORDERED: INSULIN SLIDING SCALE (NOVOLOG) 1 VIAL SQ SCH (11:00)
--- NOTE | 2017-02-08 12:43 | OP ---
DATE OF OPERATION: 02/08/2017 PREOPERATIVE DIAGNOSIS: Right foot abscess with infection. POSTOPERATIVE DIAGNOSIS: Right foot abscess with infection. PROCEDURE: Right foot incision and drainage. SURGEON: Naricso Mondragon DPM SYSTEM OPERATION SUPERINTENDENT: None. PATHOLOGY: Abscess, right foot. ANESTHESIA: LMA with local sedation. ESTIMATED BLOOD LOSS: 20 mL HEMOSTASIS: Surgical dissection. COMPLICATIONS: None. DESCRIPTION OF PROCEDURE: The patient was brought to the operating room and placed on the operating table in the supine position. I elected to not use a tourniquet during the course of this procedure. Following the induction of LMA anesthesia, local anesthesia was achieved utilizing 20 mL of 2% lidocaine plain. The right foot was then scrubbed, prepped, and draped in the usual aseptic fashion. Attention was directed to the right plantar foot where, upon review of MRI, a fluid collection was noted at the 3rd metatarsophalangeal joint. I began by performing a 4-cm curvilinear incision on the plantar aspect of the foot overlying the 3rd metatarsophalangeal joint. Immediately upon incision of the subcutaneous tissue, there was purulent material expressed from the wound. A series of cultures was obtained including anaerobic, aerobic, acid fast bacilli, and fungal cultures. These were all sent off appropriately. Next, all loculated abscess tissue was subsequently removed utilizing a pickup and sterile scissors. The abscess tissue was sent for Pathology for analysis. Of note, the abscess continued deep, and there was probing to the 3rd metatarsal head noted. The flexor tendon and flexor plate appeared vital. Next, the surgical site was copiously irrigated with sterile saline. The wound was packed at its central-most aspect utilizing 1/4-inch Iodoform packing. The incision was coapted proximally and distally using 3-0 nylon in a simple interrupted suture fashion. Following the conclusion of the procedure, the incision site was covered with Xeroform, and a sterile compressive dressing was applied to the right foot, consisting of sterile gauze, , clean Kerlix, and Yash wrap. The patient tolerated the procedure and anesthesia well without complications. He was transferred from the operating room to the recovery unit with vital signs stable and neurovasculature intact to the right foot. DEVANG PRATT/[id number] cc: [facility] Podiatry
--- NOTE | 2017-02-08 13:15 | PN ---
Physical Exam: SUBJECTIVE: Patient seen and examined. He had surgery this AM, he is feeling better, states foot pain is better. OBJECTIVE: Vital Signs Period Temp Pulse Resp BP Sys/Adkins Pulse Ox Last 24 Hr 97.6 F-98.3 F 53-74 16-20 108-125/60-87 97-99 PE Neuro: alert, awake, cn 2-12intact Pulm: CTAB CV: s1 s2 rrr no mrg Abd: s nt nd + bs Ext: R foot with dressing, elevated, toe swelling Laboratory Results - last 24 hr 02/07/17 02/07/17 02/07/17 12:30 17:33 21:26 POC Glucometer 324 306 Vancomycin Pre-Dose 0.822 L* 02/08/17 02/08/17 06:24 11:09 POC Glucometer 117 204 Vancomycin Pre-Dose Active Medications Generic Name Dose Route Start Last Admin Trade Name Freq PRN Reason Stop Dose Admin Acetaminophen 650 mg 02/08/17 08:49 Tylenol - PO Q4H PRN FEVER OR PAIN Heparin Sodium (Porcine) 5,000 unit 02/08/17 14:00 Heparin - SQ TID [facility] Vancomycin HCl 1,250 mg/ 250 mls @ 166.667 mls/hr 02/08/17 13:00 Dextrose IVPB DAILY@1300 [facility] Protocol Piperacillin Sod/Tazobactam 50 mls @ 100 mls/hr 02/08/17 10:00 02/08/17 10:15 Sod 3.375 gm/ Dextrose IVPB 100 mls/hr Q8H-IV [facility] Administration Protocol Insulin Aspart 1 vial 02/08/17 11:00 02/08/17 11:13 Novolog Vial Sliding Scale - SQ 6 units TIDAC [facility] Administration Protocol Insulin Aspart 1 vial 02/08/17 22:00 Novolog Vial Sliding Scale - SQ HS [facility] Protocol Insulin Detemir 20 units 02/08/17 22:00 Levemir Vial SQ HS [facility] Ketorolac Tromethamine 15 mg 02/08/17 08:43 Toradol Injection - IVPUSH 02/09/17 00:04 Q6H PRN PAIN Ondansetron HCl 4 mg 02/08/17 08:43 Zofran Injection IVPB Q4H PRN NAUSEA AND/OR VOMITING Imaging: - MRI Right food: R foot MRI: fluid collection inferolateral 3rd metatarsal head with patchy bone marrow edema Assessment: 31 yo man with h/o DM with diabetic foot infection Plan: 1. Right Plantar cellulitis/abscess - s/p ID right foot incision and drainage today in OR - Continue Vanco/Zosyn 2. DM II , uncontrolled - Increase levemir 20 units HS - ISS, BGM TID/HS Visit type - Emergency Visit Emergency Visit: Yes ED Registration Date: 02/04/17 Care time: The patient presented to the Emergency Department on the above date and was hospitalized for further evaluation of their emergent condition. - New Patient This patient is new to me today: No - Critical Care Critical Care patient: No
[2017-02-08] MEDS: VANCOMYCIN 1,250 MG in DEXTROSE 5%-WATER - 250 ML IVPB SCH (13:46)
--- NOTE | 2017-02-08 14:46 | PN ---
Progress Note, Physician History of Present Illness: patient stable post op - Current Medication List Current Medications: Active Medications Acetaminophen (Tylenol -) 650 mg PO Q4H PRN PRN Reason: FEVER OR PAIN Heparin Sodium (Porcine) (Heparin -) 5,000 unit SQ TID [facility] Last Admin: 02/08/17 14:30 Dose: 5,000 unit Vancomycin HCl 1,250 mg/ (Dextrose) 250 mls @ 166.667 mls/hr IVPB DAILY@1300 [facility] PRN Reason: Protocol Last Admin: 02/08/17 13:46 Dose: 166.667 mls/hr Piperacillin Sod/Tazobactam (Sod 3.375 gm/ Dextrose) 50 mls @ 100 mls/hr IVPB Q8H-IV [facility] PRN Reason: Protocol Last Admin: 02/08/17 10:15 Dose: 100 mls/hr Insulin Aspart (Novolog Vial Sliding Scale -) 1 vial SQ TIDAC [facility] PRN Reason: Protocol Last Admin: 02/08/17 11:13 Dose: 6 units Insulin Aspart (Novolog Vial Sliding Scale -) 1 vial SQ HS [facility] PRN Reason: Protocol Insulin Detemir (Levemir Vial) 20 units SQ HS [facility] Ketorolac Tromethamine (Toradol Injection -) 15 mg IVPUSH Q6H PRN PRN Reason: PAIN Stop: 02/09/17 00:04 Ondansetron HCl (Zofran Injection) 4 mg IVPB Q4H PRN PRN Reason: NAUSEA AND/OR VOMITING - Objective Vital Signs: Vital Signs Temperature 97.6 F 02/08/17 09:54 Pulse Rate 61 02/08/17 09:54 Respiratory Rate 18 02/08/17 09:54 Blood Pressure 117/70 02/08/17 09:54 O2 Sat by Pulse Oximetry (%) 99 02/08/17 09:54 Constitutional: Yes: No Distress, Calm Cardiovascular: Yes: Regular Rate and Rhythm Respiratory: Yes: Regular, CTA Bilaterally Gastrointestinal: Yes: Normal Bowel Sounds, Soft Musculoskeletal: Yes: Other Extremities: Yes: Other Neurological: Yes: Alert, Oriented Psychiatric: Yes: Alert Labs: CBC, BMP 02/07/17 10:30 02/07/17 10:30 Assessment/Plan 31 yo non-complaint M w h/o diabetes w c/o right foot pain x 1 week found to have cellulitis and abscess to right foot 1. Right diabetic plantar foot ulcer w abscess/cellulitis 2. DM T2 w hyperglycemia 3. Hyponatremia 2/2 hyperglycemia plan'' continue abx await for cx reports
--- NOTE | 2017-02-08 14:54 | PN ---
Progress Note (short form) - Note Progress Note: S/P Drainage of Rt foot abscess Denies any complaints Vital Signs Period Temp Pulse Resp BP Sys/Adkins Pulse Ox Last 24 Hr 97.6 F-98.3 F 53-74 16-20 108-125/60-87 97-99 PE: AOx3 Neck: Supple, No JVD Lunsg: CTA CVS: S1S2 Abd: Benign Ext: Rt foot dressing Neuro: No focal deficit CBC,CMP WBC 7.2 K/mm3 (4.0-10.0) 02/07/17 10:30 RBC 4.27 M/mm3 (4.00-5.60) 02/07/17 10:30 Hgb 13.4 GM/dL (11.7-16.9) 02/07/17 10:30 Hct 39.2 % (35.4-49) 02/07/17 10:30 MCV 91.9 fl (80-96) 02/07/17 10:30 MCH 31.4 pg (25.7-33.7) 02/07/17 10:30 MCHC 34.2 g/dl (32.0-35.9) 02/07/17 10:30 RDW 12.2 % (11.9-15.9) 02/07/17 10:30 Plt Count 370 K/MM3 (134-434) 02/07/17 10:30 MPV 7.6 fl (7.5-11.1) 02/07/17 10:30 Neutrophils % 75.1 % (42.8-82.8) 02/07/17 10:30 Lymphocytes % 17.8 % (8-40) 02/07/17 10:30 Monocytes % 5.0 % (3.8-10.2) 02/07/17 10:30 Eosinophils % 1.8 % (0-4.5) 02/07/17 10:30 Basophils % 0.3 % (0-2.0) 02/07/17 10:30 ESR 81 mm/hr (0-10) H 02/04/17 06:30 Sodium 136 mmol/L (136-145) 02/07/17 10:30 Potassium 4.1 mmol/L (3.5-5.1) 02/07/17 10:30 Chloride 99 mmol/L (98-107) 02/07/17 10:30 Carbon Dioxide 33 mmol/L (21-32) H D 02/07/17 10:30 Anion Gap 4 (8-16) L 02/07/17 10:30 BUN 17 mg/dL (7-18) D 02/07/17 10:30 Creatinine 0.7 mg/dL (0.7-1.3) D 02/07/17 10:30 Creat Clearance w eGFR > 60 (>60) 02/05/17 06:30 POC Glucometer 204 UNITS (()) 02/08/17 11:09 Random Glucose 298 mg/dL (74-106) H D 02/07/17 10:30 Hemoglobin A1c % 13.8 % (4.8-6.0) H 02/04/17 06:30 Uric Acid 3.2 mg/dL (2.6-7.2) 02/07/17 10:30 Calcium 9.3 mg/dL (8.5-10.1) 02/07/17 10:30 Phosphorus 4.1 mg/dL (2.5-4.9) 02/05/17 06:30 Magnesium 2.0 mg/dL (1.8-2.4) 02/07/17 10:30 Total Bilirubin 0.3 mg/dL (0.2-1.0) 02/05/17 06:30 AST 13 U/L (15-37) L D 02/05/17 06:30 ALT 14 U/L (12-78) D 02/05/17 06:30 Alkaline Phosphatase 132 U/L (45-117) H 02/05/17 06:30 C-Reactive Protein 6.0 MG/DL (0.00-0.3) H D 02/04/17 06:30 Total Protein 6.5 g/dl (6.4-8.2) 02/05/17 06:30 Albumin 2.3 g/dl (3.4-5.0) L 02/05/17 06:30 TSH 1.23 uIU/ml (0.358-3.74) 02/05/17 06:30 Current Medications Generic Name Dose Route Start Last Admin Trade Name Freq PRN Reason Stop Dose Admin Acetaminophen 650 mg 02/08/17 08:49 Tylenol - PO Q4H PRN FEVER OR PAIN Heparin Sodium (Porcine) 5,000 unit 02/08/17 14:00 02/08/17 14:30 Heparin - SQ 5,000 unit TID [facility] Administration Vancomycin HCl 1,250 mg/ 250 mls @ 166.667 mls/hr 02/08/17 13:00 02/08/17 13:46 Dextrose IVPB 166.667 mls/hr DAILY@1300 [facility] Administration Protocol Piperacillin Sod/Tazobactam 50 mls @ 100 mls/hr 02/08/17 10:00 02/08/17 10:15 Sod 3.375 gm/ Dextrose IVPB 100 mls/hr Q8H-IV [facility] Administration Protocol Insulin Aspart 1 vial 02/08/17 11:00 02/08/17 11:13 Novolog Vial Sliding Scale - SQ 6 units TIDAC [facility] Administration Protocol Insulin Aspart 1 vial 02/08/17 22:00 Novolog Vial Sliding Scale - SQ HS [facility] Protocol Insulin Detemir 20 units 02/08/17 22:00 Levemir Vial SQ [facility] Ketorolac Tromethamine 15 mg 02/08/17 08:43 Toradol Injection - IVPUSH 02/09/17 00:04 Q6H PRN PAIN Ondansetron HCl 4 mg 02/08/17 08:43 Zofran Injection IVPB Q4H PRN NAUSEA AND/OR VOMITING AP: Right diabetic plantar foot ulcer w abscess/cellulitis s/P drainage DM T2 w hyperglycemia IV abx Local wound care Levemir 20 units daily at HS Novolog SS coverage. Didn't get Novolog for breakfast Nutrition consult Teach pt to self inject Insulin and self monitor blood sugar will f/u Problem List - Problems (1) Diabetic foot Code(s): E11.8 - TYPE 2 DIABETES MELLITUS WITH UNSPECIFIED COMPLICATIONS (2) Uncontrolled diabetes mellitus Code(s): E11.65 - TYPE 2 DIABETES MELLITUS WITH HYPERGLYCEMIA
[2017-02-08] MEDS: ACETAMINOPHEN 325 MG TABLET (FP) PO PRN ×2 (16:09→20:03)
[2017-02-08] MEDS: INSULIN DETEMIR 100 UNITS/ML MDV SQ SCH (21:59)
[2017-02-08] MEDS ORDERED: INSULIN DETEMIR 100 UNITS/ML MDV SQ SCH ×2 (22:00)
[2017-02-09] MEDS ORDERED: PIPERACILLIN/TAZOBACTAM 3.375 GM VIAL IVPB ONE ×2 (00:28→09:26)
[2017-02-09] MEDS ORDERED: DEXTROSE 5%-WATER - 50 ML IVPB ONE ×2 (00:29→09:26)
[2017-02-09] MEDS: PIPERACILLIN/TAZOB 3.375 GM 3.375 GM in DEXTROSE 5%-WATER - 50 ML IVPB SCH ×2 (01:04→09:38)
[2017-02-09] MEDS: ACETAMINOPHEN 325 MG TABLET (FP) PO PRN ×2 (03:45→08:29)
[2017-02-09] MEDS: HEPARIN NA (PORCINE) 5,000 UNITS/ML 1ML VIAL SQ SCH ×3 (05:45→22:20)
[2017-02-09] MEDS: INSULIN SLIDING SCALE (NOVOLOG) 1 VIAL SQ SCH ×4 (06:22→22:21)
[2017-02-09 08:21] LABS: BASOPHIL 0.4 % (0-2.0); EOSINOPHIL 1.6 % (0-4.5); MCH 31.4 pg (25.7-33.7); MCHC 34.2 g/dl (32.0-35.9); MEAN CELL VOLUME 91.7 fl (80-96); MEAN PLT VOLUME 8.5 fl (7.5-11.1); NEUTROPHILS 69.9 % (42.8-82.8); PLATELET COUNT 374 K/MM3 (134-434); RDW 12.2 % (11.9-15.9); WHITE BLOOD COUNT 8.4 K/mm3 (4.0-10.0)
[2017-02-09 08:50] LABS: ANION GAP 9 (8-16); CALCIUM 9.2 mg/dL (8.5-10.1); CO2 28 mmol/L (21-32); CREATININE 0.6 mg/dL (0.7-1.3); GLUCOSE,RANDOM 152 mg/dL (74-106)
--- NOTE | 2017-02-09 09:54 | PN ---
Physical Exam: SUBJECTIVE: Patient seen and examined. His pain is equal from before surgery. No fevers OBJECTIVE: Vital Signs Period Temp Pulse Resp BP Sys/Adkins Pulse Ox Last 24 Hr 97.6 F-98.2 F 60-70 18-20 117-155/65-86 99-100 PE Gen: grimacing Neuro: alert, awake, cn 2-12intact Pulm: CTAB CV: s1 s2 rrr no mrg Abd: s nt nd + bs Ext: R foot with dressing, elevated, toe swelling Laboratory Results - last 24 hr 02/09/17 02/09/17 02/09/17 05:43 07:51 07:51 WBC 8.4 RBC 4.05 Hgb 12.7 Hct 37.1 MCV 91.7 MCH 31.4 MCHC 34.2 RDW 12.2 Plt Count 374 MPV 8.5 D Neutrophils % 69.9 Lymphocytes % 23.1 D Monocytes % 5.0 Eosinophils % 1.6 Basophils % 0.4 Sodium 138 Potassium 4.5 Chloride 101 Carbon Dioxide 28 Anion Gap 9 BUN 16 Creatinine 0.6 L POC Glucometer 154 Random Glucose 152 H D Calcium 9.2 Active Medications Generic Name Dose Route Start Last Admin Trade Name Freq PRN Reason Stop Dose Admin Acetaminophen 650 mg 02/08/17 08:49 02/09/17 08:29 Tylenol - PO 650 mg Q4H PRN Administration FEVER OR PAIN Heparin Sodium (Porcine) 5,000 unit 02/08/17 14:00 02/09/17 05:45 Heparin - SQ 5,000 unit TID [facility] Administration Vancomycin HCl 1,250 mg/ 250 mls @ 166.667 mls/hr 02/08/17 13:00 02/08/17 13:46 Dextrose IVPB 166.667 mls/hr DAILY@1300 [facility] Administration Protocol Piperacillin Sod/Tazobactam 50 mls @ 100 mls/hr 02/08/17 10:00 02/09/17 09:38 Sod 3.375 gm/ Dextrose IVPB 100 mls/hr Q8H-IV [facility] Administration Protocol Insulin Aspart 1 vial 02/08/17 22:00 02/08/17 22:00 Novolog Vial Sliding Scale - SQ 2 unit HS [facility] Administration Protocol Insulin Aspart 1 vial 02/08/17 14:55 02/09/17 06:22 Novolog Vial Sliding Scale - SQ 6 units TIDAC [facility] Administration Protocol Insulin Detemir 20 units 02/08/17 22:00 02/08/17 21:59 Levemir Vial SQ 20 units HS [facility] Administration Ondansetron HCl 4 mg 02/08/17 08:43 Zofran Injection IVPB Q4H PRN NAUSEA AND/OR VOMITING Oxycodone HCl 5 mg 02/09/17 09:52 Roxicodone - PO Q6H PRN PAIN Imaging: - MRI Right food: R foot MRI: fluid collection inferolateral 3rd metatarsal head with patchy bone marrow edema Assessment: 31 yo man with h/o DM with diabetic foot infection Plan: 1. Right Plantar cellulitis/abscess - Right foot incision and drainage 02/09 - Awaiting cultures - Continue Vanco/Zosyn - Start PO percocet 2. DM II , uncontrolled - Levemir 20 units HS - ISS, BGM TID/HS Visit type - Emergency Visit Emergency Visit: Yes ED Registration Date: 02/04/17 Care time: The patient presented to the Emergency Department on the above date and was hospitalized for further evaluation of their emergent condition. - New Patient This patient is new to me today: No - Critical Care Critical Care patient: No
[2017-02-09] MEDS: oxyCODONE HCL 5 MG TABLET PO PRN ×2 (10:41→22:22)
--- NOTE | 2017-02-09 10:48 | PN ---
Progress Note (short form) - Note Progress Note: Seen at bedside in NAD Afebrile VSS Dressing CDI Denies CP SOB or Calf pain Still complaining of foot pain s/p I&D GUSTAVO : Palpable pedal pulses NVSI epicritic sensations grossly intact Packing in place Edema decreased . NO signs of ascending cellulitis No lymphangitis or lymphadenopathy noted NO signs of ascending cellulits Negative Miguelangel's sign IMPRESSION: Satisfactory healing , POD # 1 s/p I&D Cultures pending Plan: ABX as per Infectious disease Pain management D/C Planning , RECC F/U [facility] Wound care center with Dr Mondragon
--- NOTE | 2017-02-09 12:58 | PATH ---
Surgical Pathology Report Patient Name: LEONARDO REHMAN Med. Rec. #: [id number] /Age/Gender: 1985 (Age: 31) / M Account: [id number] Location: [facility] MED/SURG Taken: 02/08/2017 Received: 02/08/2017 Reported: 02/09/2017 Physicians: DEVANG Fox ACNP Specimen(s) Received RIGHT FOOT ABCESS TISSUE Clinical History Diabetic foot Final Diagnosis SOFT TISSUE, RIGHT FOOT, ABSCESS, INCISION AND DRAINAGE: BENIGN FIBROFATTY TISSUE WITH ACUTE NECROTIZING INFLAMMATION AND GANGRENOUS NECROSIS. Electronically Signed Wallace Saavedra M.D. Gross Description Received in formalin labeled "right foot abscess tissue" is a 1.8 x 1.4 x 0.3 cm aggregate of jay soft tissue fragments. The specimen is entirely submitted in one cassette. /02/08/2017 saudi02/08/2017
[2017-02-09] MEDS: VANCOMYCIN 1,250 MG in DEXTROSE 5%-WATER - 250 ML IVPB SCH (13:03)
--- NOTE | 2017-02-09 13:49 | PN ---
Progress Note, Physician History of Present Illness: patient stable post op dressing changed - Current Medication List Current Medications: Active Medications Acetaminophen (Tylenol -) 650 mg PO Q4H PRN PRN Reason: FEVER OR PAIN Last Admin: 02/09/17 08:29 Dose: 650 mg Heparin Sodium (Porcine) (Heparin -) 5,000 unit SQ TID ESTHER Last Admin: 02/09/17 05:45 Dose: 5,000 unit Vancomycin HCl 1,250 mg/ (Dextrose) 250 mls @ 166.667 mls/hr IVPB DAILY@1300 ESTHER PRN Reason: Protocol Last Admin: 02/09/17 13:03 Dose: 166.667 mls/hr Piperacillin Sod/Tazobactam (Sod 3.375 gm/ Dextrose) 50 mls @ 100 mls/hr IVPB Q8H-IV ESTHER PRN Reason: Protocol Last Admin: 02/09/17 09:38 Dose: 100 mls/hr Insulin Aspart (Novolog Vial Sliding Scale -) 1 vial SQ HS [facility] PRN Reason: Protocol Last Admin: 02/08/17 22:00 Dose: 2 unit Insulin Aspart (Novolog Vial Sliding Scale -) 1 vial SQ TIDAC EST[facility] PRN Reason: Protocol Last Admin: 02/09/17 11:31 Dose: 12 units Insulin Detemir (Levemir Vial) 20 units SQ HS [facility] Last Admin: 02/08/17 21:59 Dose: 20 units Ondansetron HCl (Zofran Injection) 4 mg IVPB Q4H PRN PRN Reason: NAUSEA AND/OR VOMITING Oxycodone HCl (Roxicodone -) 5 mg PO Q6H PRN PRN Reason: PAIN Last Admin: 02/09/17 10:41 Dose: 5 mg - Objective Vital Signs: Vital Signs Temperature 97.9 F 02/09/17 09:36 Pulse Rate 84 02/09/17 10:00 Respiratory Rate 20 02/09/17 09:36 Blood Pressure 127/65 02/09/17 09:36 O2 Sat by Pulse Oximetry (%) 95 02/09/17 10:00 Constitutional: Yes: No Distress, Calm Cardiovascular: Yes: Regular Rate and Rhythm Respiratory: Yes: Regular, CTA Bilaterally Gastrointestinal: Yes: Normal Bowel Sounds, Soft Musculoskeletal: Yes: Other Extremities: Yes: Other Wound/Incision: Yes: Dressing Dry and Intact Neurological: Yes: Alert, Oriented Psychiatric: Yes: Alert, Oriented Labs: CBC, BMP 02/09/17 07:51 02/09/17 07:51 Assessment/Plan 31 yo non-complaint M w h/o diabetes w c/o right foot pain x 1 week found to have cellulitis and abscess to right foot 1. Right diabetic plantar foot ulcer w abscess/cellulitis 2. DM T2 w hyperglycemia 3. Hyponatremia 2/2 hyperglycemia plan'' continue abx await for cx reports once cx report noted we will put a picc line and send him will need abx for 4 weeks
[2017-02-09] MEDS ORDERED: INSULIN (NOVOLOG) ASPART 100 UNITS/ML 10ML VIAL ONE ×3 (16:57→20:57)
[2017-02-09] MEDS ORDERED: predniSONE 10 MG TABLET (UD) PO SCH (17:00)
[2017-02-09] MEDS ORDERED: SODIUM CHLORIDE 1,000 ML IV SCH (17:00)
[2017-02-09] MEDS: INSULIN DETEMIR 100 UNITS/ML MDV SQ SCH (22:21)
[2017-02-10] MEDS: HEPARIN NA (PORCINE) 5,000 UNITS/ML 1ML VIAL SQ SCH ×3 (06:24→22:06)
[2017-02-10] MEDS: INSULIN SLIDING SCALE (NOVOLOG) 1 VIAL SQ SCH ×4 (06:26→22:05)
--- NOTE | 2017-02-10 11:52 | PN ---
Physical Exam: SUBJECTIVE: Patient seen and examined. He says his foot/pain is much better today. He is eager to go home OBJECTIVE: Vital Signs Period Temp Pulse Resp BP Sys/Adkins Pulse Ox Last 24 Hr 97.5 F-98.4 F 60-65 20-20 113-150/66-83 95 PE Neuro: alert, awake, cn 2-12intact Pulm: CTAB CV: s1 s2 rrr no mrg Abd: s nt nd + bs Ext: R foot with dressing, elevated, Laboratory Results - last 24 hr 02/06/17 02/06/17 02/09/17 16:59 17:06 17:01 POC Glucometer 263 93 253 02/09/17 02/10/17 22:14 06:22 POC Glucometer 299 298 Active Medications Generic Name Dose Route Start Last Admin Trade Name Freq PRN Reason Stop Dose Admin Acetaminophen 650 mg 02/08/17 08:49 02/09/17 08:29 Tylenol - PO 650 mg Q4H PRN Administration FEVER OR PAIN Heparin Sodium (Porcine) 5,000 unit 02/08/17 14:00 02/10/17 06:24 Heparin - SQ 5,000 unit TID ESTHER Administration Vancomycin HCl 1,250 mg/ 250 mls @ 166.667 mls/hr 02/08/17 13:00 02/09/17 13:03 Dextrose IVPB 166.667 mls/hr DAILY@1300 ESTHER Administration Protocol Insulin Aspart 1 vial 02/08/17 22:00 02/09/17 22:21 Novolog Vial Sliding Scale - SQ 4 unit HS ESTHER Administration Protocol Insulin Aspart 1 vial 02/08/17 14:55 02/10/17 11:33 Novolog Vial Sliding Scale - SQ 12 units TIDAC [facility] Administration Protocol Insulin Detemir 20 units 02/08/17 22:00 02/09/17 22:21 Levemir Vial SQ 20 units HS ESTHER Administration Ondansetron HCl 4 mg 02/08/17 08:43 Zofran Injection IVPB Q4H PRN NAUSEA AND/OR VOMITING Oxycodone HCl 5 mg 02/09/17 09:52 02/09/17 22:22 Roxicodone - PO 5 mg Q6H PRN Administration PAIN Imaging: - MRI Right food: R foot MRI: fluid collection inferolateral 3rd metatarsal head with patchy bone marrow edema Microbiology 02/08/17 08:07 Gram Stain - Final Tissue-Other Tissue Culture - Preliminary Staphylococcus Aureus Anaerobic Culture - Final 02/08/17 08:07 AFB Smear Concentration - Final Foot - Right Mycobacterial Culture - Preliminary Assessment: 31 yo man with h/o DM with diabetic foot infection Plan: 1. Right Plantar cellulitis/abscess - Right foot incision and drainage 02/09 - Final cx with staph - Stopped zosyn yesterday - continue vanco - PICC line with 4 weeks antibiotics 2. DM II , uncontrolled - Levemir 20 units HS - ISS, BGM TID/HS Visit type - Emergency Visit Emergency Visit: Yes ED Registration Date: 02/04/17 Care time: The patient presented to the Emergency Department on the above date and was hospitalized for further evaluation of their emergent condition. - New Patient This patient is new to me today: No - Critical Care Critical Care patient: No
[2017-02-10] MEDS ORDERED: PICC LINE 8 ML FLUSH PROTOCOL IVPUSH PRN (11:53)
[2017-02-10] MEDS ORDERED: PT OWN MED DRAWER 7, Y5N ONE (14:10)
[2017-02-10] MEDS: VANCOMYCIN 1,250 MG in DEXTROSE 5%-WATER - 250 ML IVPB SCH (14:12)
--- NOTE | 2017-02-10 16:33 | PN ---
Progress Note, Physician History of Present Illness: Pt states he feels well. Pain controlled with medication. Denies fever/chills, abd pain/diarrhea. - Current Medication List Current Medications: Active Medications Acetaminophen (Tylenol -) 650 mg PO Q4H PRN PRN Reason: FEVER OR PAIN Last Admin: 02/09/17 08:29 Dose: 650 mg Heparin Sodium (Porcine) (Heparin -) 5,000 unit SQ TID ESTHER Last Admin: 02/10/17 14:13 Dose: 5,000 unit IV Flush (Picc Line Flush) 8 ml IVPUSH PRN PRN PRN Reason: Protocol Ceftriaxone Sodium 1 gm/ (Dextrose) 50 mls @ 100 mls/hr IVPB DAILY ESTHER Stop: 02/14/17 09:59 Insulin Aspart (Novolog Vial Sliding Scale -) 1 vial SQ HS [facility] PRN Reason: Protocol Last Admin: 02/09/17 22:21 Dose: 4 unit Insulin Aspart (Novolog Vial Sliding Scale -) 1 vial SQ TIDAC [facility] PRN Reason: Protocol Last Admin: 02/10/17 11:33 Dose: 12 units Insulin Detemir (Levemir Vial) 20 units SQ HS [facility] Last Admin: 02/09/17 22:21 Dose: 20 units Ondansetron HCl (Zofran Injection) 4 mg IVPB Q4H PRN PRN Reason: NAUSEA AND/OR VOMITING Oxycodone HCl (Roxicodone -) 5 mg PO Q6H PRN PRN Reason: PAIN Last Admin: 02/09/17 22:22 Dose: 5 mg - Objective Vital Signs: Vital Signs Temperature 97.6 F 02/10/17 15:39 Pulse Rate 67 02/10/17 15:39 Respiratory Rate 18 02/10/17 15:39 Blood Pressure 122/70 02/10/17 15:39 O2 Sat by Pulse Oximetry (%) 95 02/09/17 21:00 Constitutional: Yes: No Distress HENT: Yes: WNL Cardiovascular: Yes: Regular Rate and Rhythm Respiratory: Yes: CTA Bilaterally Gastrointestinal: Yes: Normal Bowel Sounds, Soft Extremities: Yes: Other (Rt foot dressed s/p I+D) Wound/Incision: Yes: Clean/Dry Neurological: Yes: Alert Labs: CBC, BMP 02/09/17 07:51 02/09/17 07:51 Microbiology 02/08/17 08:07 Tissue-Other Gram Stain - Final 02/08/17 08:07 Tissue-Other Tissue Culture - Final Staphylococcus Aureus 02/08/17 08:07 Tissue-Other Anaerobic Culture - Final 02/08/17 08:07 Foot - Right AFB Smear Concentration - Final 02/08/17 08:07 Foot - Right Mycobacterial Culture - Preliminary 02/08/17 08:07 Foot - Right Lateral SUKUMAR Preparation - Preliminary 02/08/17 08:07 Foot - Right Lateral Fungal Culture - Preliminary Problem List - Problems (1) Diabetic foot Code(s): E11.8 - TYPE 2 DIABETES MELLITUS WITH UNSPECIFIED COMPLICATIONS (2) Uncontrolled diabetes mellitus Code(s): E11.65 - TYPE 2 DIABETES MELLITUS WITH HYPERGLYCEMIA (3) Abscess Code(s): L02.91 - CUTANEOUS ABSCESS, UNSPECIFIED Assessment/Plan Diabetic Foot ulcer/abscess s/p I+D Uncontrolled DM - d/c current antibiotics switch to Ceftriaxone, PICC placement needs good glycemic control continue wound care pt currently stable
[2017-02-10] MEDS: oxyCODONE HCL 5 MG TABLET PO PRN (17:16)
[2017-02-10] MEDS: ACETAMINOPHEN 325 MG TABLET (FP) PO PRN (22:03)
[2017-02-10] MEDS: INSULIN DETEMIR 100 UNITS/ML MDV SQ SCH (22:04)
[2017-02-11] MEDS: HEPARIN NA (PORCINE) 5,000 UNITS/ML 1ML VIAL SQ SCH ×3 (06:44→22:34)
[2017-02-11] MEDS: INSULIN SLIDING SCALE (NOVOLOG) 1 VIAL SQ SCH ×4 (06:44→22:36)
[2017-02-11] MEDS ORDERED: cefTRIAXone SODIUM 1 GM VIAL ONE (09:15)
[2017-02-11] MEDS ORDERED: DEXTROSE 5%-WATER - 50 ML IVPB ONE (09:15)
[2017-02-11] MEDS: CEFTRIAXONE 1 GM in DEXTROSE 5%-WATER - 50 ML IVPB SCH (09:25)
--- NOTE | 2017-02-11 09:48 | PN ---
Physical Exam: SUBJECTIVE: Patient seen and examined. He has no active issues, he is wondering if he can go on PO diabetes pills. OBJECTIVE: Vital Signs Period Temp Pulse Resp BP Sys/Adkins Pulse Ox Last 24 Hr 97.5 F-98.1 F 60-67 16-20 122-131/70-77 99 PE Neuro: alert, awake, cn 2-12intact Pulm: CTAB CV: s1 s2 rrr no mrg Abd: s nt nd + bs Ext: R foot with dressing Laboratory Results - last 24 hr 02/11/17 06:38 POC Glucometer 128 Active Medications Generic Name Dose Route Start Last Admin Trade Name Freq PRN Reason Stop Dose Admin Acetaminophen 650 mg 02/08/17 08:49 02/10/17 22:03 Tylenol - PO 650 mg Q4H PRN Administration FEVER OR PAIN Heparin Sodium (Porcine) 5,000 unit 02/08/17 14:00 02/11/17 06:44 Heparin - SQ 5,000 unit TID ESTHER Administration IV Flush 8 ml 02/10/17 11:53 Picc Line Flush IVPUSH PRN PRN Protocol Ceftriaxone Sodium 1 gm/ 50 mls @ 100 mls/hr 02/11/17 10:00 02/11/17 09:25 Dextrose IVPB 02/14/17 09:59 100 mls/hr DAILY ESTHER Administration Insulin Aspart 1 vial 02/08/17 22:00 02/10/17 22:05 Novolog Vial Sliding Scale - SQ 2 unit HS ESTHER Administration Protocol Insulin Aspart 1 vial 02/08/17 14:55 02/11/17 06:44 Novolog Vial Sliding Scale - SQ 6 units TIDAC ESTHER Administration Protocol Insulin Detemir 20 units 02/08/17 22:00 02/10/17 22:04 Levemir Vial SQ 20 units HS ESTHER Administration Ondansetron HCl 4 mg 02/08/17 08:43 Zofran Injection IVPB Q4H PRN NAUSEA AND/OR VOMITING Oxycodone HCl 5 mg 02/09/17 09:52 02/10/17 17:16 Roxicodone - PO 5 mg Q6H PRN Administration PAIN Microbiology 02/08/17 08:07 Gram Stain - Final Tissue-Other Tissue Culture - Final Staphylococcus Aureus Anaerobic Culture - Final Assessment: 31 yo man with h/o DM with diabetic foot infection Plan: 1. Right Plantar cellulitis/abscess - Right foot incision and drainage 02/09 - Stopped vanco - Started ceftriaxone - Picc line tomorrow - 4 weeks antibiotics - Dressing changes per podiatry - Wound care follow up/VNS 2. DM II , uncontrolled - Levemir 20 units HS - ISS, BGM TID/HS - Endocrine to decide on PO antidiabetics Visit type - Emergency Visit Emergency Visit: Yes ED Registration Date: 02/04/17 Care time: The patient presented to the Emergency Department on the above date and was hospitalized for further evaluation of their emergent condition. - New Patient This patient is new to me today: No - Critical Care Critical Care patient: No
--- NOTE | 2017-02-11 12:40 | PN ---
Progress Note, Physician History of Present Illness: Pt states he feels well. Pain controlled. No new events. - Current Medication List Current Medications: Active Medications Acetaminophen (Tylenol -) 650 mg PO Q4H PRN PRN Reason: FEVER OR PAIN Last Admin: 02/10/17 22:03 Dose: 650 mg Heparin Sodium (Porcine) (Heparin -) 5,000 unit SQ TID ESTHER Last Admin: 02/11/17 06:44 Dose: 5,000 unit IV Flush (Picc Line Flush) 8 ml IVPUSH PRN PRN PRN Reason: Protocol Ceftriaxone Sodium 1 gm/ (Dextrose) 50 mls @ 100 mls/hr IVPB DAILY ESTHER Stop: 02/14/17 09:59 Last Admin: 02/11/17 09:25 Dose: 100 mls/hr Insulin Aspart (Novolog Vial Sliding Scale -) 1 vial SQ HS [facility] PRN Reason: Protocol Last Admin: 02/10/17 22:05 Dose: 2 unit Insulin Aspart (Novolog Vial Sliding Scale -) 1 vial SQ TIDAC [facility] PRN Reason: Protocol Last Admin: 02/11/17 06:44 Dose: 6 units Insulin Detemir (Levemir Vial) 20 units SQ HS [facility] Last Admin: 02/10/17 22:04 Dose: 20 units Ondansetron HCl (Zofran Injection) 4 mg IVPB Q4H PRN PRN Reason: NAUSEA AND/OR VOMITING Oxycodone HCl (Roxicodone -) 5 mg PO Q6H PRN PRN Reason: PAIN Last Admin: 02/10/17 17:16 Dose: 5 mg - Objective Vital Signs: Vital Signs Temperature 98.1 F 02/11/17 06:10 Pulse Rate 60 02/11/17 06:10 Respiratory Rate 16 02/11/17 06:10 Blood Pressure 128/73 02/11/17 06:10 O2 Sat by Pulse Oximetry (%) 99 02/10/17 21:00 Constitutional: Yes: No Distress, Calm Eyes: Yes: WNL HENT: Yes: WNL Neck: Yes: WNL Cardiovascular: Yes: Regular Rate and Rhythm Respiratory: Yes: CTA Bilaterally Gastrointestinal: Yes: Normal Bowel Sounds, Soft Genitourinary: Yes: WNL Musculoskeletal: Yes: WNL Extremities: Yes: Erythema Edema: RLE: 1+ Wound/Incision: Yes: Sutures Intact Neurological: Yes: Alert, Oriented Psychiatric: Yes: Alert, Oriented Labs: CBC, BMP 02/09/17 07:51 02/09/17 07:51 Problem List - Problems (1) Diabetic foot Code(s): E11.8 - TYPE 2 DIABETES MELLITUS WITH UNSPECIFIED COMPLICATIONS (2) Uncontrolled diabetes mellitus Code(s): E11.65 - TYPE 2 DIABETES MELLITUS WITH HYPERGLYCEMIA (3) Abscess Code(s): L02.91 - CUTANEOUS ABSCESS, UNSPECIFIED Assessment/Plan Rt foot Diabetic ulcer/abscess s/p I/D DM - continue Ceftriaxone - awaiting PICC placement - continue wound care - maintain good glycemic control
[2017-02-11] MEDS: ACETAMINOPHEN 325 MG TABLET (FP) PO PRN (22:33)
[2017-02-11] MEDS: INSULIN DETEMIR 100 UNITS/ML MDV SQ SCH (22:35)
[2017-02-12] MEDS: HEPARIN NA (PORCINE) 5,000 UNITS/ML 1ML VIAL SQ SCH ×2 (07:16→14:45)
[2017-02-12] MEDS: INSULIN SLIDING SCALE (NOVOLOG) 1 VIAL SQ SCH ×3 (07:17→17:48)
[2017-02-12] MEDS ORDERED: cefTRIAXone SODIUM 1 GM VIAL ONE (10:34)
[2017-02-12] MEDS ORDERED: DEXTROSE 5%-WATER - 50 ML IVPB ONE (10:35)
[2017-02-12] MEDS: CEFTRIAXONE 1 GM in DEXTROSE 5%-WATER - 50 ML IVPB SCH ×2 (11:06→11:29)
--- NOTE | 2017-02-12 13:38 | PN ---
Physical Exam: SUBJECTIVE: Patient seen and examined. He has no complaints. Discussed discharge plan OBJECTIVE: Vital Signs Period Temp Pulse Resp BP Sys/Adkins Pulse Ox Last 24 Hr 97.3 F-98.2 F 59-78 16-20 116-128/69-79 99-99 PE Neuro: alert, awake, cn 2-12intact Pulm: CTAB CV: s1 s2 rrr no mrg Abd: s nt nd + bs Ext: RUE picc, R foot with dressing Laboratory Results - last 24 hr 02/11/17 02/11/17 02/12/17 16:55 22:05 06:02 POC Glucometer 188 232 158 02/12/17 11:43 POC Glucometer 248 Active Medications Generic Name Dose Route Start Last Admin Trade Name Freq PRN Reason Stop Dose Admin Acetaminophen 650 mg 02/08/17 08:49 02/11/17 22:33 Tylenol - PO 650 mg Q4H PRN Administration FEVER OR PAIN Heparin Sodium (Porcine) 5,000 unit 02/08/17 14:00 02/12/17 07:16 Heparin - SQ Not Given TID ESTHER IV Flush 8 ml 02/10/17 11:53 Picc Line Flush IVPUSH PRN PRN Protocol Ceftriaxone Sodium 1 gm/ 50 mls @ 100 mls/hr 02/11/17 10:00 02/12/17 11:29 Dextrose IVPB 02/14/17 09:59 100 mls/hr DAILY ESTHER Administration Insulin Aspart 1 vial 02/08/17 22:00 02/11/17 22:36 Novolog Vial Sliding Scale - SQ 4 unit HS ESTHER Administration Protocol Insulin Aspart 1 vial 02/08/17 14:55 02/12/17 11:46 Novolog Vial Sliding Scale - SQ 10 units TIDAC ESTHER Administration Protocol Insulin Detemir 20 units 02/08/17 22:00 02/11/17 22:35 Levemir Vial SQ 20 units HS ESTHER Administration Ondansetron HCl 4 mg 02/08/17 08:43 Zofran Injection IVPB Q4H PRN NAUSEA AND/OR VOMITING Assessment: 31 yo man with h/o DM with diabetic foot infection Plan: 1. Right Plantar cellulitis/abscess - Right foot incision and drainage 02/09 - Ceftriaxone for 4 weeks ends 03/10 - Wound care follow up with Dr. Bortnicker 2. DM II , uncontrolled - Pt wants to take pills, he is aware it will not control his diabetes - Metformin 500mg BID - Glipizide 5mg BID - Endocrine office follow up, d/w Dr. Watkins - Levemir 20 units HS while inpt Dispo: - Home with daily abx infusion at [facility] - [facility] - PCP and podiatry follow up
--- NOTE | 2017-02-12 13:42 | DS ---
Physical Exam: SUBJECTIVE: Patient seen and examined, no complaints, eager to go home. DC plan discussed OBJECTIVE: Vital Signs Period Temp Pulse Resp BP Sys/Adkins Pulse Ox Last 24 Hr 97.3 F-98.2 F 59-78 16-20 116-128/69-79 99-99 PE Neuro: alert, awake, cn 2-12intact Pulm: CTAB CV: s1 s2 rrr no mrg Abd: s nt nd + bs Ext: R foot with dressing, RUE picc Laboratory Results - last 24 hr 02/11/17 02/11/17 02/12/17 16:55 22:05 06:02 POC Glucometer 188 232 158 02/12/17 11:43 POC Glucometer 248 HOSPITAL COURSE: Date of Admission:02/04/17 Date of Discharge: 02/12/17 Minutes to complete discharge: 37 Discharge Summary Reason For Visit: DIABETIC FOOT, UNCONTROLLED DIABETES Current Active Problems Abscess (Acute) Diabetic foot (Acute) Uncontrolled diabetes mellitus (Acute) Hospital Course: Initial Hospital Course: Briefly, this 31 non complaint diabetic w c/o right foot pain x 1 week. Denied injury or puncture to foot had difficulty w ambulation. Reported increased swelling, pain and redness. Subsequent Hospital Course/Progress Note/Discharge Summary by a/p: Assessment: 31 yo man with h/o DM with diabetic foot infection Plan: 1. Right Plantar cellulitis/abscess - Right foot incision and drainage 02/09 - Ceftriaxone for 4 weeks ends 03/10 - Wound care follow up with Dr. Hoffmann 2. DM II , uncontrolled - Pt wants to take pills, he is aware it will not control his diabetes - Metformin 500mg BID - Glipizide 5mg BID - Endocrine office follow up, d/w Dr. Watkins - Levemir 20 units HS while inpt Dispo: - Home with daily abx infusion at [facility] - [facility] - PCP and podiatry follow up Condition: Improved - Instructions Diet, Activity, Other Instructions: Please return to the ED for any new, persistent, or worsening symptoms. Follow up with your PCP in 1 week You will need to come to the hospital every day until 03-10 for antibiotic infusion. During the weekday you will go to the 2nd floor to [facility] on the weekends the 7th floor. Follow up with wound care clinic next week, call to make an appt (referral enclosed or [phone]) Follow up with diabetes doctor in 2 week (referral enclosed) Take diabetes medication as directed Continue daily wound care Visiting nurse may or may not come to help with wound care (due to insurance coverage), if they do not you will need to continue with daily wound cleaning and follow up with Dr. Hoffmann. Referrals: Brayan Harmon MD [Staff Physician] - 1 Week Narciso Mondragon MD [Staff Physician] - 1 Week (Follow up in office next week, call to make an appt. ) Disposition: HOME - Home Medications Comprehensive Discharge Medication List: Ambulatory Orders Glipizide 5 mg PO BID #60 tablet 02/12/17 Metformin HCl 500 mg PO BID #60 tablet 02/12/17 This patient is new to me today: No Emergency Visit: Yes ED Registration Date: 02/04/17 Care time: The patient presented to the Emergency Department on the above date and was hospitalized for further evaluation of their emergent condition. Critical Care patient: No - Discharge Referral Referred to [facility] Med [facility] No
[2017-02-12 14:39] VITALS: TEMP 97.9
[2017-02-12] MEDS ORDERED: MUPIROCIN CA 2% TOPICAL CREAM 15 GM TUBE TP SCH (16:00)
[2017-02-12 16:51] VITALS: BP 118/72; PULSE 61
[2017-02-12] MEDS: ACETAMINOPHEN 325 MG TABLET (FP) PO PRN (17:48)
== END 2017-02-12 19:02 | disposition home or self-care (01) | DRG 383 ==
LOC: JER 21:12 → JERBED 02-04 00:49 → UNDOADMIN 02-04 00:55 → JERBED 02-04 00:55 → J8W 02-04 02:32 → JERBED 02-04 02:32 → J8W 02-06 22:29
PROVIDERS: ADMIT Internal Medicine; ATTEND Nurse Practitioner Acute Care
PROC: 0J9Q0ZX Drainage of Right Foot Subcutaneous Tissue and Fascia, Open Approach, Diagnostic (ICD-10-PCS; principal; 2017-02-08 07:30)
PROC: 06HY33Z Insertion of Infusion Device into Lower Vein, Percutaneous Approach (ICD-10-PCS; 2017-02-12)
DX: L03.115 Cellulitis of right lower limb (principal); E11.621 Type 2 diabetes mellitus with foot ulcer; L97.519 Non-pressure chronic ulcer of other part of right foot with unspecified severity; E11.65 Type 2 diabetes mellitus with hyperglycemia; E87.1 Hypo-osmolality and hyponatremia; B35.3 Tinea pedis; Z79.4 Long term (current) use of insulin; Z91.14 Patient's other noncompliance with medication regimen; L02.611 Cutaneous abscess of right foot
CPT/HCPCS: 36415; 36569; 71020-TC; 73630-TC-RT; 73700-TC-RT; 73720-TC; 77001-TC; 80048; 80053; 81003; 81015; 82009; 83036; 83735; 84100; 84443; 84550; 85025; 85651; 86140; 87070; 87075; 87102; 87116; 87186; 87205; 87206; 87210; 88304-TC; 93005; 93010; 94760; 97116-GP; 97161-GP; 99283-25; A9576; C1751; G0480; J1644

== ENCOUNTER 2017-02-13 15:45 | Day surgery (SDC) | payer OTHER ==
[~2017-02-13 15:45] MED LIST: CEFTRIAXONE 1 GM in DEXTROSE 5%-WATER - 50 ML IVPB ONE
[2017-02-13 18:44] VITALS: BP 128/72; PULSE 76; TEMP 98.5
== END 2017-02-13 18:43 | disposition home or self-care (01) ==
LOC: J7W 15:45 → JINFUSION 15:45
PROVIDERS: ATTEND Internal Medicine Infectious Disease
DX: E11.621 Type 2 diabetes mellitus with foot ulcer (principal); L03.115 Cellulitis of right lower limb; Z79.84 Long term (current) use of oral hypoglycemic drugs
CPT/HCPCS: 96365

== ENCOUNTER 2017-02-14 14:02 | Day surgery (SDC) | payer OTHER ==
[2017-02-14 14:38] VITALS: TEMP 98.1
[2017-02-14 15:18] VITALS: BP 121/79; PULSE 72
== END 2017-02-14 15:20 | disposition home or self-care (01) ==
LOC: JINFUSION 14:02
PROVIDERS: ATTEND Internal Medicine Infectious Disease
DX: E11.621 Type 2 diabetes mellitus with foot ulcer (principal); L03.115 Cellulitis of right lower limb; Z79.84 Long term (current) use of oral hypoglycemic drugs
CPT/HCPCS: 96365

== ENCOUNTER 2017-02-15 13:22 | Day surgery (SDC) | payer OTHER ==
[2017-02-15 13:48] VITALS: TEMP 98.4
[2017-02-15] MEDS ORDERED: cefTRIAXone 1 GM/50 ML BAG (PRE-DOCKED) IVPB ONE (14:15)
[2017-02-15 14:48] VITALS: BP 109/83; PULSE 67
== END 2017-02-15 14:45 | disposition home or self-care (01) ==
LOC: JASU-ENDO 13:22 → JINFUSION 13:22 → JASU-ENDO 14:45
PROVIDERS: ATTEND Internal Medicine Infectious Disease
DX: E11.621 Type 2 diabetes mellitus with foot ulcer (principal); L03.115 Cellulitis of right lower limb; Z79.84 Long term (current) use of oral hypoglycemic drugs
CPT/HCPCS: 96365

== ENCOUNTER 2017-02-16 13:09 | Day surgery (SDC) | payer OTHER ==
[~2017-02-16 13:09] MED LIST changes: -CEFTRIAXONE 1 GM in DEXTROSE 5%-WATER - 50 ML IVPB ONE; +cefTRIAXone SODIUM 1 GM VIAL IVPB SCH
[2017-02-16 13:36] LABS: MCH 31.5 pg (25.7-33.7); MCHC 34.4 g/dl (32.0-35.9); MEAN CELL VOLUME 91.7 fl (80-96); MEAN PLT VOLUME 8.2 fl (7.5-11.1); PLATELET COUNT 389 K/MM3 (134-434); RDW 12.4 % (11.9-15.9); WHITE BLOOD COUNT 7.3 K/mm3 (4.0-10.0)
[2017-02-16] MEDS ORDERED: cefTRIAXone SODIUM 1 GM VIAL ONE (13:40)
[2017-02-16 14:03] VITALS: TEMP 98.2
[2017-02-16 15:23] VITALS: BP 122/84; PULSE 74
== END 2017-02-16 14:20 | disposition home or self-care (01) ==
LOC: JINFUSION 13:09
PROVIDERS: ATTEND Internal Medicine Infectious Disease
DX: E11.621 Type 2 diabetes mellitus with foot ulcer (principal); L03.115 Cellulitis of right lower limb; Z79.84 Long term (current) use of oral hypoglycemic drugs
CPT/HCPCS: 36415; 85027; 96365

== ENCOUNTER 2017-02-17 11:44 | Day surgery (SDC) | payer OTHER ==
[2017-02-17] MEDS ORDERED: CEFTRIAXONE 1 GM in DEXTROSE 5%-WATER - 50 ML IVPB SCH (12:30)
[2017-02-17] MEDS ORDERED: cefTRIAXone SODIUM 1 GM VIAL ONE (12:31)
[2017-02-17] MEDS ORDERED: DEXTROSE 5%-WATER - 50 ML IVPB ONE (12:31)
[2017-02-17 12:41] VITALS: BP 114/68; PULSE 79; TEMP 98.1
== END 2017-02-17 13:00 | disposition home or self-care (01) ==
LOC: JINFUSION 11:44 → J7W 11:45 → JINFUSION 13:00
PROVIDERS: ATTEND Internal Medicine Infectious Disease
DX: E11.621 Type 2 diabetes mellitus with foot ulcer (principal); L03.115 Cellulitis of right lower limb; Z79.84 Long term (current) use of oral hypoglycemic drugs
CPT/HCPCS: 96365

== ENCOUNTER 2017-02-18 08:08 | Day surgery (SDC) | payer OTHER ==
[2017-02-18] MEDS ORDERED: cefTRIAXone SODIUM 1 GM VIAL ONE (13:09)
[2017-02-18] MEDS ORDERED: DEXTROSE 5%-WATER - 50 ML IVPB ONE (13:09)
[2017-02-18] MEDS ORDERED: CEFTRIAXONE 1 GM in DEXTROSE 5%-WATER - 50 ML IVPB ONE (13:15)
[2017-02-18 13:52] VITALS: BP 117/72; PULSE 75; TEMP 98.6
== END 2017-02-18 14:00 | disposition home or self-care (01) ==
LOC: JINFUSION 08:08 → J7W 12:40 → JINFUSION 14:00
PROVIDERS: ATTEND Internal Medicine Infectious Disease
DX: E11.621 Type 2 diabetes mellitus with foot ulcer (principal); L03.115 Cellulitis of right lower limb; Z79.84 Long term (current) use of oral hypoglycemic drugs
CPT/HCPCS: 96365

== ENCOUNTER 2017-02-19 18:49 | Day surgery (SDC) | payer OTHER ==
[2017-02-19] MEDS ORDERED: CEFTRIAXONE 1 GM in DEXTROSE 5%-WATER - 50 ML IVPB ONE (20:15)
[2017-02-19] MEDS ORDERED: DEXTROSE 5%-WATER - 50 ML IVPB ONE (20:26)
[2017-02-19] MEDS ORDERED: cefTRIAXone SODIUM 1 GM VIAL ONE (20:26)
[2017-02-19 20:48] VITALS: TEMP 97.8
[2017-02-19 21:46] VITALS: BP 121/79; PULSE 67
== END 2017-02-19 21:15 | disposition home or self-care (01) ==
LOC: JINFUSION 18:49 → J7W 18:51 → JINFUSION 21:15
PROVIDERS: ATTEND Internal Medicine Infectious Disease
DX: E11.621 Type 2 diabetes mellitus with foot ulcer (principal); L03.115 Cellulitis of right lower limb; Z79.84 Long term (current) use of oral hypoglycemic drugs

== ENCOUNTER 2017-02-20 18:05 | Day surgery (SDC) | payer OTHER ==
[2017-02-20 18:35] VITALS: BP 119/72; PULSE 66; TEMP 97.5
[2017-02-20] MEDS ORDERED: CEFTRIAXONE 1 GM in DEXTROSE 5%-WATER - 50 ML IVPB SCH (19:15)
[2017-02-20] MEDS ORDERED: cefTRIAXone SODIUM 1 GM VIAL ONE (19:16)
[2017-02-20] MEDS ORDERED: DEXTROSE 5%-WATER - 50 ML IVPB ONE (19:16)
[2017-02-21] MEDS ORDERED: CEFTRIAXONE 1 GM in DEXTROSE 5%-WATER - 50 ML IVPB SCH (10:00)
== END 2017-02-20 20:00 | disposition home or self-care (01) ==
LOC: JINFUSION 18:05 → J7W 18:08 → JINFUSION 20:00
PROVIDERS: ATTEND Internal Medicine Infectious Disease
DX: E11.621 Type 2 diabetes mellitus with foot ulcer (principal); L03.115 Cellulitis of right lower limb

== ENCOUNTER 2017-02-22 18:38 | Day surgery (SDC) | payer OTHER ==
[2017-02-22] MEDS ORDERED: CEFAZOLIN 1 GM in DEXTROSE 5%-WATER - 50 ML IVPB SCH (19:15)
[2017-02-22] MEDS ORDERED: CEFTRIAXONE 1 GM in DEXTROSE 5%-WATER - 50 ML IVPB ONE (20:15)
[2017-02-22] MEDS ORDERED: DEXTROSE 5%-WATER - 50 ML IVPB ONE (20:24)
[2017-02-22] MEDS ORDERED: cefTRIAXone SODIUM 1 GM VIAL ONE (20:24)
[2017-02-22 20:30] VITALS: TEMP 98.4
[2017-02-22 21:18] VITALS: BP 119/53; PULSE 61
== END 2017-02-22 21:19 | disposition home or self-care (01) ==
LOC: JINFUSION 18:38 → J7W 18:38 → JINFUSION 21:19
PROVIDERS: ATTEND Internal Medicine Infectious Disease
DX: E11.621 Type 2 diabetes mellitus with foot ulcer (principal); L03.115 Cellulitis of right lower limb
CPT/HCPCS: 96365; 96366

== ENCOUNTER 2017-02-23 18:19 | Day surgery (SDC) | payer OTHER ==
[2017-02-23] MEDS ORDERED: WATER IVPB ONE (18:45)
[2017-02-23] MEDS ORDERED: DEXTROSE 5% IVPB ONE (18:45)
[2017-02-23] MEDS ORDERED: cefTRIAXone SODIUM 1 GM VIAL ONE (18:45)
[2017-02-23] MEDS ORDERED: CEFTRIAXONE 1 GM in DEXTROSE 5%-WATER - 50 ML IVPB ONE (18:45)
[2017-02-23 19:03] VITALS: TEMP 97.7
[2017-02-23 20:16] VITALS: BP 128/66; PULSE 62
[2017-02-23 20:33] LABS: MCHC 34.7 g/dl (32.0-35.9); MEAN CELL VOLUME 92.4 fl (80-96); MEAN PLT VOLUME 9.5 fl (7.5-11.1); PLATELET COUNT 225 K/MM3 (134-434); RDW 12.7 % (11.9-15.9)
== END 2017-02-23 20:17 | disposition home or self-care (01) ==
LOC: JINFUSION 18:19 → J7W 18:19 → JINFUSION 20:17
PROVIDERS: ATTEND Internal Medicine Infectious Disease
DX: E11.621 Type 2 diabetes mellitus with foot ulcer (principal); L03.115 Cellulitis of right lower limb
CPT/HCPCS: 36415; 85027; 96365

== ENCOUNTER 2017-02-24 11:37 | Day surgery (SDC) | payer OTHER ==
[2017-02-24] MEDS ORDERED: CEFTRIAXONE 1 GM in DEXTROSE 5%-WATER - 50 ML IVPB ONE (12:30)
[2017-02-24] MEDS ORDERED: cefTRIAXone SODIUM 1 GM VIAL ONE (12:38)
[2017-02-24] MEDS ORDERED: DEXTROSE 5%-WATER - 50 ML IVPB ONE (12:40)
[2017-02-24 12:56] VITALS: TEMP 98.4
[2017-02-24 13:46] VITALS: BP 116/80; PULSE 61
== END 2017-02-24 13:50 | disposition home or self-care (01) ==
LOC: JINFUSION 11:37 → J7W 11:39 → JINFUSION 13:50
PROVIDERS: ATTEND Internal Medicine Infectious Disease
DX: E11.621 Type 2 diabetes mellitus with foot ulcer (principal); L03.115 Cellulitis of right lower limb
CPT/HCPCS: 96365

== ENCOUNTER 2017-02-25 11:10 | Day surgery (SDC) | payer OTHER ==
[2017-02-25] MEDS ORDERED: CEFTRIAXONE 1 GM in DEXTROSE 5%-WATER - 50 ML IVPB ONE (12:00)
[2017-02-25] MEDS ORDERED: DEXTROSE 5%-WATER - 50 ML IVPB ONE (12:09)
[2017-02-25] MEDS ORDERED: cefTRIAXone SODIUM 1 GM VIAL ONE (12:09)
[2017-02-25 12:22] VITALS: TEMP 98.6
[2017-02-25 13:06] VITALS: BP 121/82
[2017-02-25 13:08] VITALS: PULSE 67
== END 2017-02-25 15:46 | disposition home or self-care (01) ==
LOC: JINFUSION 11:10 → J7W 11:11 → JINFUSION 15:46
PROVIDERS: ATTEND Internal Medicine Infectious Disease
DX: E11.621 Type 2 diabetes mellitus with foot ulcer (principal); L03.115 Cellulitis of right lower limb
CPT/HCPCS: 96365

== ENCOUNTER 2017-02-26 10:48 | Day surgery (SDC) | payer OTHER ==
[2017-02-26] MEDS ORDERED: DEXTROSE 5%-WATER - 50 ML IVPB ONE (11:11)
[2017-02-26] MEDS ORDERED: cefTRIAXone SODIUM 1 GM VIAL ONE (11:11)
[2017-02-26 11:18] VITALS: BP 111/71; PULSE 68; TEMP 98.7
[2017-02-26] MEDS ORDERED: CEFTRIAXONE 1 GM in DEXTROSE 5%-WATER - 50 ML IVPB ONE (11:30)
== END 2017-02-26 12:30 | disposition home or self-care (01) ==
LOC: JINFUSION 10:48 → J7W 10:49 → JINFUSION 12:30
PROVIDERS: ATTEND Internal Medicine Infectious Disease
DX: E11.621 Type 2 diabetes mellitus with foot ulcer (principal); L03.115 Cellulitis of right lower limb
CPT/HCPCS: 96365; 96366

== ENCOUNTER 2017-02-27 18:32 | Day surgery (SDC) | payer OTHER ==
[2017-02-27 19:05] VITALS: TEMP 98.1
[2017-02-27] MEDS ORDERED: cefTRIAXone SODIUM 1 GM VIAL ONE (19:07)
[2017-02-27] MEDS ORDERED: DEXTROSE 5%-WATER - 50 ML IVPB ONE (19:07)
[2017-02-27] MEDS ORDERED: CEFTRIAXONE 1 GM in DEXTROSE 5%-WATER - 50 ML IVPB SCH (19:15)
[2017-02-27 20:21] VITALS: BP 118/78; PULSE 76
[2017-02-28] MEDS ORDERED: cefTRIAXone 1 GM/50 ML BAG (PRE-DOCKED) IVPB SCH (10:00)
== END 2017-02-27 20:36 | disposition home or self-care (01) ==
LOC: JINFUSION 18:32 → J7W 18:34 → JINFUSION 20:36
PROVIDERS: ATTEND Internal Medicine Infectious Disease
DX: E11.621 Type 2 diabetes mellitus with foot ulcer (principal); L03.115 Cellulitis of right lower limb
CPT/HCPCS: 96365

== ENCOUNTER 2017-02-28 18:29 | Day surgery (SDC) | payer OTHER ==
[2017-02-28 18:58] VITALS: TEMP 97.9
[2017-02-28] MEDS ORDERED: cefTRIAXone SODIUM 1 GM VIAL ONE (18:59)
[2017-02-28] MEDS ORDERED: DEXTROSE 5%-WATER - 50 ML IVPB ONE (19:00)
[2017-02-28] MEDS ORDERED: CEFTRIAXONE 1 GM in DEXTROSE 5%-WATER - 50 ML IVPB ONE (19:00)
[2017-02-28 19:42] VITALS: BP 130/72; PULSE 84
== END 2017-02-28 19:43 | disposition home or self-care (01) ==
LOC: JINFUSION 18:29 → J7W 18:30 → JINFUSION 19:43
PROVIDERS: ATTEND Internal Medicine Infectious Disease
DX: E11.621 Type 2 diabetes mellitus with foot ulcer (principal); L03.115 Cellulitis of right lower limb
CPT/HCPCS: 96365

== ENCOUNTER 2017-03-01 18:45 | Day surgery (SDC) | payer OTHER ==
[2017-03-01] MEDS ORDERED: DEXTROSE 5%-WATER - 50 ML IVPB ONE (21:06)
[2017-03-01] MEDS ORDERED: cefTRIAXone SODIUM 1 GM VIAL ONE (21:06)
[2017-03-01] MEDS ORDERED: CEFTRIAXONE 1 GM in DEXTROSE 5%-WATER - 50 ML IVPB ONE (21:15)
[2017-03-01 23:10] VITALS: BP 116/75; PULSE 65; TEMP 97.8
[2017-03-02] MEDS ORDERED: CEFTRIAXONE 1 GM in DEXTROSE 5%-WATER - 50 ML IVPB SCH (10:00)
== END 2017-03-01 22:00 | disposition home or self-care (01) ==
LOC: JINFUSION 18:45 → J7W 18:52 → JINFUSION 22:00
PROVIDERS: ATTEND Internal Medicine Infectious Disease
DX: E11.621 Type 2 diabetes mellitus with foot ulcer (principal)
CPT/HCPCS: 96365

== ENCOUNTER 2017-03-02 18:47 | Day surgery (SDC) | payer OTHER ==
[2017-03-02] MEDS ORDERED: CEFTRIAXONE 1 GM in DEXTROSE 5%-WATER - 50 ML IVPB ONE (19:15)
[2017-03-02] MEDS ORDERED: cefTRIAXone SODIUM 1 GM VIAL ONE (19:17)
[2017-03-02] MEDS ORDERED: DEXTROSE 5%-WATER - 50 ML IVPB ONE (19:17)
[2017-03-02 20:12] VITALS: TEMP 97.7
[2017-03-02 20:38] VITALS: BP 110/68; PULSE 65
== END 2017-03-02 20:39 | disposition home or self-care (01) ==
LOC: JINFUSION 18:47 → J7W 18:52 → JINFUSION 20:39
PROVIDERS: ATTEND Internal Medicine Infectious Disease
DX: E11.621 Type 2 diabetes mellitus with foot ulcer (principal); L03.115 Cellulitis of right lower limb
CPT/HCPCS: 96365

== ENCOUNTER 2017-03-03 10:17 | Day surgery (SDC) | payer OTHER ==
[2017-03-03 10:45] VITALS: TEMP 98.2
[2017-03-03] MEDS ORDERED: DEXTROSE 5%-WATER - 50 ML IVPB ONE (10:54)
[2017-03-03] MEDS ORDERED: cefTRIAXone SODIUM 1 GM VIAL ONE (10:54)
[2017-03-03] MEDS ORDERED: CEFTRIAXONE 1 GM in DEXTROSE 5%-WATER - 50 ML IVPB ONE (11:10)
[2017-03-03 11:24] VITALS: BP 112/73; PULSE 69
--- NOTE | 2017-03-03 12:55 | CON.ID ---
Consult Consult Specialty:: infectious diseases Referred by:: Reason for Consultation:: fever,sweats,abd pain,leukocytosis - History of Present Illness Chief Complaint: abd pain,epigastric - Past Medical History Endocrine: Yes: Diabetes Mellitus - Alcohol/Substance Use Hx Alcohol Use: No - Smoking History Smoking history: Never smoked Have you smoked in the past 12 months: No Aproximately how many cigarettes per day: 3 Home Medications - Allergies Allergies/Adverse Reactions: Allergies Allergy/AdvReac Type Severity Reaction Status Date / Time No Known Allergies Allergy Verified 02/03/17 21:49 - Home Medications Home Medications: Ambulatory Orders Glipizide 5 mg PO BID #60 tablet 02/12/17 Metformin HCl 500 mg PO BID #60 tablet 02/12/17 Physical Exam Vital Signs: Vital Signs Temperature 98.2 F 03/03/17 11:24 Pulse Rate 69 03/03/17 11:30 Respiratory Rate 16 03/03/17 11:30 Blood Pressure 112/73 03/03/17 11:30 O2 Sat by Pulse Oximetry (%)
== END 2017-03-03 13:13 | disposition home or self-care (01) ==
LOC: JINFUSION 10:17 → J7W 10:18 → JINFUSION 13:13
PROVIDERS: ATTEND Internal Medicine Infectious Disease
DX: E11.621 Type 2 diabetes mellitus with foot ulcer (principal); L03.115 Cellulitis of right lower limb
CPT/HCPCS: 96365

== ENCOUNTER 2017-03-04 11:14 | Day surgery (SDC) | payer OTHER ==
[2017-03-04 11:33] VITALS: TEMP 97.8
[2017-03-04] MEDS ORDERED: CEFTRIAXONE 1 GM in DEXTROSE 5%-WATER - 50 ML IVPB ONE (11:45)
[2017-03-04] MEDS ORDERED: cefTRIAXone SODIUM 1 GM VIAL ONE (11:48)
[2017-03-04] MEDS ORDERED: DEXTROSE 5%-WATER - 50 ML IVPB ONE (11:48)
[2017-03-04 18:53] VITALS: BMI 25.7
[2017-03-04 18:54] VITALS: BP 117/62; PULSE 62
== END 2017-03-04 12:45 | disposition home or self-care (01) ==
LOC: JINFUSION 11:14 → J7W 11:14 → JINFUSION 12:45
PROVIDERS: ATTEND Internal Medicine Infectious Disease
DX: E11.621 Type 2 diabetes mellitus with foot ulcer (principal); L03.115 Cellulitis of right lower limb
CPT/HCPCS: 96365

== ENCOUNTER 2017-03-06 18:29 | Day surgery (SDC) | payer OTHER ==
[2017-03-06] MEDS ORDERED: CEFTRIAXONE 1 GM in DEXTROSE 5%-WATER - 50 ML IVPB ONE (18:45)
[2017-03-06] MEDS ORDERED: cefTRIAXone SODIUM 1 GM VIAL ONE (18:47)
[2017-03-06] MEDS ORDERED: DEXTROSE 5%-WATER - 50 ML IVPB ONE (18:48)
[2017-03-06 19:09] VITALS: PULSE 70; TEMP 97.6
[2017-03-06 20:19] VITALS: BP 110/68
== END 2017-03-06 20:00 | disposition home or self-care (01) ==
LOC: J7W 18:29 → JINFUSION 18:29
PROVIDERS: ATTEND Internal Medicine Infectious Disease
DX: E11.621 Type 2 diabetes mellitus with foot ulcer (principal); L03.115 Cellulitis of right lower limb

== ENCOUNTER 2017-03-07 18:25 | Day surgery (SDC) | payer OTHER ==
[2017-03-07] MEDS ORDERED: CEFTRIAXONE 1 GM in DEXTROSE 5%-WATER - 50 ML IVPB ONE (18:45)
[2017-03-07] MEDS ORDERED: cefTRIAXone SODIUM 1 GM VIAL ONE (18:51)
[2017-03-07 19:08] VITALS: TEMP 98.4
[2017-03-07 19:41] VITALS: BP 108/71; PULSE 61
== END 2017-03-07 19:50 | disposition home or self-care (01) ==
LOC: JINFUSION 18:25 → J7W 18:28 → JINFUSION 19:50
PROVIDERS: ATTEND Internal Medicine Infectious Disease
DX: E11.621 Type 2 diabetes mellitus with foot ulcer (principal); L03.115 Cellulitis of right lower limb
CPT/HCPCS: 96365

== ENCOUNTER 2017-03-08 18:48 | Day surgery (SDC) | payer OTHER ==
[2017-03-08] MEDS ORDERED: CEFTRIAXONE 1 GM in DEXTROSE 5%-WATER - 50 ML IVPB ONE (19:15)
[2017-03-08] MEDS ORDERED: cefTRIAXone SODIUM 1 GM VIAL ONE (19:32)
[2017-03-08] MEDS ORDERED: DEXTROSE 5%-WATER - 50 ML IVPB ONE (19:33)
[2017-03-08 20:20] VITALS: BP 116/70; PULSE 64; TEMP 98
== END 2017-03-08 20:32 | disposition home or self-care (01) ==
LOC: JINFUSION 18:48 → J7W 18:50 → JINFUSION 20:32
PROVIDERS: ATTEND Internal Medicine Infectious Disease
DX: E11.621 Type 2 diabetes mellitus with foot ulcer (principal); L03.115 Cellulitis of right lower limb
CPT/HCPCS: 96365

== ENCOUNTER 2017-03-09 18:12 | Day surgery (SDC) | payer OTHER ==
[2017-03-09] MEDS ORDERED: CEFTRIAXONE 1 GM in DEXTROSE 5%-WATER - 50 ML IVPB ONE (18:30)
[2017-03-09] MEDS ORDERED: DEXTROSE 5%-WATER - 50 ML IVPB ONE (18:42)
[2017-03-09] MEDS ORDERED: cefTRIAXone SODIUM 1 GM VIAL ONE (18:42)
[2017-03-09 18:50] VITALS: TEMP 98.2
[2017-03-09 19:31] VITALS: BP 116/53; PULSE 68
== END 2017-03-09 19:31 | disposition home or self-care (01) ==
LOC: JINFUSION 18:12 → J7W 18:14 → JINFUSION 19:31
PROVIDERS: ATTEND Internal Medicine Infectious Disease
DX: E11.621 Type 2 diabetes mellitus with foot ulcer (principal); L03.115 Cellulitis of right lower limb
CPT/HCPCS: 96365

== ENCOUNTER 2017-03-10 12:06 | Day surgery (SDC) | payer OTHER ==
[2017-03-10] MEDS ORDERED: cefTRIAXone SODIUM 1 GM VIAL ONE (13:41)
[2017-03-10] MEDS ORDERED: DEXTROSE 5%-WATER - 50 ML IVPB ONE (13:41)
[2017-03-10 13:57] VITALS: BP 101/68; PULSE 65; TEMP 98.7
[2017-03-10] MEDS ORDERED: CEFTRIAXONE 1 GM in DEXTROSE 5%-WATER - 50 ML IVPB ONE (14:00)
== END 2017-03-10 15:19 | disposition home or self-care (01) ==
LOC: JINFUSION 12:06 → J7W 12:07 → JINFUSION 15:19
PROVIDERS: ATTEND Internal Medicine Infectious Disease
DX: E11.621 Type 2 diabetes mellitus with foot ulcer (principal); L03.115 Cellulitis of right lower limb
CPT/HCPCS: 96365

== ENCOUNTER 2018-07-17 15:14 | Emergency (ER) | payer SELFPAY ==
--- NOTE | 2018-07-17 15:24 | PDOC ---
Rapid Medical Evaluation Time Seen by Provider: 07/17/18 15:23 Medical Evaluation: Allergies Allergy/AdvReac Type Severity Reaction Status Date / Time No Known Allergies Allergy Verified 02/03/17 21:49 07/17/18 15:23 I performed a brief in-person evaluation of this patient. Chief complaint is: Right ear pain Pertinent physical exam findings include: Alert, no distress. No tonsillar erythema or exudates. Afebrile. I have ordered the following: None. Patient will proceed to the ED for further evaluation. Discharge Disposition - Diagnosis Ear pain, right - Referrals - Patient Instructions - Post Discharge Activity
[2018-07-17 15:25] VITALS: BP 125/82; PULSE 72; TEMP 98.1; BMI 34.3
[2018-07-17] MEDS ORDERED: ACETAMINOPHEN 500 MG TABLET (FP) PO ONE (15:54)
[2018-07-17] MEDS ORDERED: ACETAMINOPHEN 500 MG TABLET (FP) ONE (15:56)
--- NOTE | 2018-07-17 16:00 | PDOC ---
History of Present Illness - General Chief Complaint: Ear Problem Stated Complaint: EAR PROBLEM/HEADACHE Time Seen by Provider: 07/17/18 15:23 - History of Present Illness Initial Comments: 07/17/18 15:57 33-year-old male without comorbidities presents for evaluation of right ear pain times one day. No systemic symptoms. Past History - Past Medical History Allergies/Adverse Reactions: Allergies Allergy/AdvReac Type Severity Reaction Status Date / Time No Known Allergies Allergy Verified 07/17/18 15:54 Home Medications: Ambulatory Orders Glipizide 5 mg PO BID #60 tablet 02/12/17 metFORMIN HCL [Metformin HCl] 500 mg PO BID #60 tablet 02/12/17 Diabetes: Yes - Suicide/Smoking/Psychosocial Hx Smoking History: Never smoked Have you smoked in the past 12 months: No Number of Cigarettes Smoked Daily: 3 Information on smoking cessation initiated: No Hx Alcohol Use: No Drug/Substance Use Hx: No Substance Use Type: Alcohol Review of Systems - Review of Systems Constitutional: No: Fever HEENTM: Yes: Ear Pain *Physical Exam - Vital Signs Last Vital Signs Temp Pulse Resp BP Pulse Ox 98.1 F 72 18 125/82 100 07/17/18 15:23 07/17/18 15:23 07/17/18 15:23 07/17/18 15:23 07/17/18 15:23 - Physical Exam Comments: 07/17/18 15:57 HEAD: NC/AT EYES: Conjuntiva clear Ears: R ear canal is normal tympanic membrane is retracted, left ear canal and tympanic membrane are normal NOSE: No d/c THROAT: Moist mucous membrances, oral pharanx clear, uvula midline NECK: Supple without adenopathy CARDIAC: S1 S2 LUNGS: CTA Full and Equal breath sounds ABDOMEN: Soft NT ND MS: Full ROM in all joints without edema NEUROLOGIC: No gross sensory or motor deficits, NVID SKIN: Normal color and temperature no lesions or rashes Moderate Sedation - Procedure Monitoring Vital Signs: Procedure Monitoring Vital Signs Temperature 98.1 F 07/17/18 15:23 Pulse Rate 72 07/17/18 15:23 Respiratory Rate 18 07/17/18 15:23 Blood Pressure 125/82 07/17/18 15:23 O2 Sat by Pulse Oximetry (%) 100 07/17/18 15:23 *DC/Admit/Observation/Transfer Diagnosis at time of Disposition: Ear pain, right - Discharge Dispostion Disposition: HOME Condition at time of disposition: Stable Decision to Admit order: No - Referrals Referrals: Duane Su MD [Non Staff, Medical] - Marcelino Becerra [Non Staff, Medical] - Delvin Arizmendi MD [Non Staff, Medical] - Paulo Knox [Staff Physician] - Luigi Ybarra MD [Non Staff, Medical] - Rome Malloy [Non Staff, Medical] - Ramu Malloy MD [Non Staff, Medical] - Ramu Ken [Non Staff, Medical] - Erik Diaz MD [Non Staff, Medical] - Ramon Oden MD [Non Staff, Medical] - Adiel Le [Staff Physician] - - Patient Instructions Printed Discharge Instructions: Middle Ear Infection Additional Instructions: Tylenol and Motrin as directed for pain. Take the antibiotics as directed and finish the entire course. Follow-up with your nose and throat doctor in 1-2 days for further evaluation and treatment options. - Post Discharge Activity
== END 2018-07-17 16:02 | disposition home or self-care (01) ==
LOC: JERFT 15:14
DX: H92.01 Otalgia, right ear (principal); E11.9 Type 2 diabetes mellitus without complications; Z72.0 Tobacco use
CPT/HCPCS: 99281-25

== ENCOUNTER 2019-06-02 16:47 | Emergency (ER) | payer SELFPAY ==
[2019-06-02 17:15] VITALS: BP 136/89; PULSE 75; TEMP 97.8; BMI 22.3
--- NOTE | 2019-06-02 17:15 | PDOC ---
Rapid Medical Evaluation Time Seen by Provider: 06/02/19 17:10 Medical Evaluation: Allergies Allergy/AdvReac Type Severity Reaction Status Date / Time No Known Allergies Allergy Verified 07/17/18 15:54 06/02/19 17:12 The patient presents to the ER for a mouth sore. Pt states it has been going on for two months. He has not seen a dentist yet; he has an appointment on Sunday Exam: nodular looking lesion to the bottom front teeth Orders: nothing Pt to proceed to the ER for further evaluation Discharge Disposition - Diagnosis Pain, dental - Discharge Dispostion Last Admission D/C Date: 02/12/17 - Referrals - Patient Instructions - Post Discharge Activity
--- NOTE | 2019-06-02 18:56 | PDOC ---
History of Present Illness - General Chief Complaint: Oral Ulcers Stated Complaint: GUM SWELLING Time Seen by Provider: 06/02/19 17:10 History Source: Patient Exam Limitations: No Limitations - History of Present Illness Initial Comments: 06/02/19 18:51 34 year old male with medical history of DM presents with swollen, pain and bleeding gums x 2 months. States pain is worse today with bleeding. Also reports bleeding and pain worse this week. States has never been to a dentist. Has a scheduled appointment 06/13/19 Is this a multiple visit Asthma Patient?: No Timing/Duration: 1 hour, getting worse Severity: severe Modifying Factors: improves with: medication Associated Symptoms: denies: denies symptoms Aspirin Received prior to arrival: Yes: no aspirin today Asa Contraindications(Core Measure): No: Allergy Beta Mellissa Contraindications(Core Measure): Yes: Not Prescribed Beta Mellissa Given by EMS(Core Measure): No Beta Mellissa Taken at Home(Core Measure): No Beta Mellissa Not Indicated at this Time(Core Measure): No Past History - Travel Traveled outside of the country in the last 30 days: No Close contact w/someone who was outside of country & ill: No - Past Medical History Allergies/Adverse Reactions: Allergies Allergy/AdvReac Type Severity Reaction Status Date / Time No Known Allergies Allergy Verified 06/02/19 17:15 Home Medications: Ambulatory Orders Glipizide 5 mg PO BID #60 tablet 02/12/17 metFORMIN HCL [Metformin HCl] 500 mg PO BID #60 tablet 02/12/17 Amox-Tr/K Cl [Augmentin - 875Mg Tablet] 1 tab PO BID #20 tablet 07/17/18 Chlorhexidine [Chlorhexidine Flavor] 1 ml MC BID #1 bottle 06/02/19 Penicillin V Potassium [Pen Vee K -] 500 mg PO TID #30 tablet 06/02/19 Anemia: No Asthma: No Cardiac Disorders: No Hx Myocardial Infarction: No Diabetes: Yes - Psycho Social/Smoking Cessation Hx Smoking History: Never smoked Have you smoked in the past 12 months: No Number of Cigarettes Smoked Daily: 3 Information on smoking cessation initiated: No Hx Alcohol Use: Yes (SOCIAL) Drug/Substance Use Hx: No Substance Use Type: Alcohol Review of Systems - Review of Systems Able to Perform ROS?: Yes Is the patient limited Albanian proficient: No Constitutional: No: Chills, Fever, Weight Stable HEENTM: Yes: Mouth Pain. No: Nose Pain, Nose Congestion, Nose Bleeding, Difficulty Swallowing Respiratory: No: Cough, Orthopnea, Shortness of Breath, Wheezing, Productive cough Cardiac (ROS): No: Edema, Lightheadedness, Palpitations ABD/GI: No: Blood Streaked Bowels, Constipated, Nausea, Poor Appetite, Abdominal cramping : No: Burning, Hematuria, Incontinence, Pain Musculoskeletal: No: Back Pain, Gout, Joint Pain, Muscle Pain, Muscle Weakness Integumentary: No: Bruising, Erythema Neurological: No: Headache, Numbness, Paresthesia *Physical Exam - Vital Signs Last Vital Signs Temp Pulse Resp BP Pulse Ox 97.8 F 75 20 136/89 98 06/02/19 17:09 06/02/19 17:09 06/02/19 17:09 06/02/19 17:09 06/02/19 17:09 - Physical Exam General Appearance: Yes: Nourished, Appropriately Dressed HEENT: positive: Pharynx Normal, Other (+ swelling, redness, and receding gums, + plaque and caries of teeth) Neck: positive: Supple. negative: Lymphadenopathy (R), Lymphadenopathy (L) Respiratory/Chest: positive: Lungs Clear Cardiovascular: positive: Regular Rhythm, Regular Rate Extremity: positive: Normal Capillary Refill Neurologic: positive: Fully Oriented, Alert Medical Decision Making - Medical Decision Making 06/02/19 19:00 34 year old male with medical history of DM presents with swollen, pain and bleeding gums x 2 months. States pain is worse today with bleeding. Also reports bleeding and pain worse this week. States has never been to a dentist. Has a scheduled appointment 06/13/19. gingivitis rx: chlorhexidine penvk dental appointment 06/13/19 strongly encouraged to follow up 06/02/19 19:02 Discharge - Discharge Information Problems reviewed: Yes Clinical Impression/Diagnosis: Pain, dental, Gingivitis due to dental plaque Condition: Good Disposition: HOME - Admission No - Additional Discharge Information Prescriptions: Chlorhexidine [Chlorhexidine Flavor] 1 ml MC BID #1 bottle Penicillin V Potassium [Pen Vee K -] 500 mg PO TID #30 tablet - Follow up/Referral - Patient Discharge Instructions Patient Printed Discharge Instructions: DI for Gingivitis Additional Instructions: Please brush teeth twice daily then rinse with chlorhexidine Please make sure you go to dental appointment 06/13/19 Return for fever, chills or worsening of symptoms - Post Discharge Activity Work/Back to School Note: Back to Work
== END 2019-06-02 19:20 | disposition home or self-care (01) ==
LOC: JERFT 16:47 → JER 16:47 → JERFT 19:20
DX: K05.10 Chronic gingivitis, plaque induced (principal); E11.9 Type 2 diabetes mellitus without complications; Z79.84 Long term (current) use of oral hypoglycemic drugs
CPT/HCPCS: 99281-25

== ENCOUNTER 2021-10-17 18:47 | Inpatient (IN) | payer SELFPAY ==
[2021-10-17 21:44] LABS: BASO % 0.2 % (0-2.0); EOS % 1.2 % (0-4.5); HEMATOCRIT 41.3 % (35.4-49); HEMOGLOBIN 14.4 GM/dL (11.7-16.9); LYMPH % 15.3 % (8-40); MCH 32.4 pg (25.7-33.7); MCHC 34.8 g/dl (32.0-35.9); MEAN CELL VOLUME 93.2 fl (80-96); MEAN PLT VOLUME 9.6 fl (7.5-11.1); MONO % 5.7 % (3.8-10.2); NEUT % 77.6 % (42.8-82.8); PLATELET COUNT 311 10^3/uL (134-434); RBC 4.43 M/mm3 (4.00-5.60); RDW 12.5 % (11.9-15.9); WHITE BLOOD COUNT 9.7 K/mm3 (4.0-10.0)
[2021-10-17 21:58] LABS: CHLORIDE 94 mmol/L (98-107); SODIUM 130 mmol/L (136-145)
[2021-10-17 22:00] LABS: CALCIUM 9.2 mg/dL (8.5-10.1)
[2021-10-17 22:01] LABS: ALBUMIN 3.1 g/dl (3.4-5.0); ANION GAP 10 MMOL/L (8-16); BLOOD UREA NITROGEN 13.4 mg/dL (7-18); CO2 26 mmol/L (21-32)
[2021-10-17 22:04] LABS: CREATININE 0.8 mg/dL (0.55-1.3); SGOT/AST 5 U/L (15-37); SGPT/ALT 11 U/L (13-61)
[2021-10-17 22:06] LABS: ALK PHOS 187 U/L (45-117); BILIRUBIN,TOTAL 0.2 mg/dL (0.2-1); TOT PROT 7.6 g/dl (6.4-8.2)
[2021-10-17 22:15] LABS: GLUCOSE,RANDOM 595 mg/dL (74-106)
[2021-10-17] MEDS ORDERED: SODIUM CHLORIDE 1,000 ML IV STA (22:19)
[2021-10-17] MEDS ORDERED: PIPERACILLIN/TAZOB 4.5 GM 4.5 GM in DEXTROSE 5%-WATER 100 ML IVPB ONE (22:26)
[2021-10-17] MEDS ORDERED: VANCOMYCIN 1 GM in D5W (PRE-DOCKED) 1,000 MG/250 ML IVPB ONE (22:26)
[2021-10-17] MEDS ORDERED: PIPERACILLIN/TAZOB 4.5 GM 4.5 GM/100 ML BAG IVPB ONE (22:42)
[2021-10-17] MEDS ORDERED: VANCOMYCIN 1 GRAM (PRE-DOCKED) 1,000 MG/250 ML BAG IVPB ONE (22:42)
[2021-10-17 23:09] LABS: VENOUS BASE EXCESS 0.3 mmol/L (-2-2); VENOUS PCO2 30.2 mmHg (38-52); VENOUS PH 7.491 (7.310-7.410)
[2021-10-18] MEDS: INSULIN SLIDING SCALE (NOVOLOG) 1 VIAL SQ SCH ×3 (00:51→11:59)
[2021-10-18] MEDS ORDERED: VANCOMYCIN 1,000 MG in DEXTROSE 5%-WATER - 250 ML IVPB SCH (01:15)
[2021-10-18] MEDS ORDERED: SODIUM CHLORIDE 1,000 ML IV SCH (02:00)
[2021-10-18] MEDS ORDERED: PIPERACILLIN/TAZOB 3.375 GM 3.375 GM in DEXTROSE 5%-WATER - 50 ML IVPB SCH ×2 (02:00→18:00)
[2021-10-18] MEDS ORDERED: VANCOMYCIN/WATER BAGS 1,250 MG/250 ML BAG IVPB SCH ×2 (02:15→12:00)
[2021-10-18 03:46] VITALS: BMI 24.7
[2021-10-18] MEDS ORDERED: PIPERACILLIN/TAZOBACTAM 3.375 GM VIAL IVPB ONE ×2 (03:55→09:31)
[2021-10-18] MEDS ORDERED: DEXTROSE 5%-WATER - 50 ML IVPB ONE ×2 (03:55→09:31)
[2021-10-18] MEDS: PIPERACILLIN/TAZOB 3.375 GM 3.375 GM in DEXTROSE 5%-WATER - 50 ML IVPB SCH ×2 (04:33→10:00)
[2021-10-18 09:16] LABS: BASO % 0.2 % (0-2.0); EOS % 2.1 % (0-4.5); HEMATOCRIT 36.7 % (35.4-49); HEMOGLOBIN 12.7 GM/dL (11.7-16.9); MCHC 34.6 g/dl (32.0-35.9); MEAN CELL VOLUME 92.4 fl (80-96); MEAN PLT VOLUME 9.3 fl (7.5-11.1); MONO % 6.8 % (3.8-10.2); NEUT % 74.9 % (42.8-82.8); PLATELET COUNT 263 10^3/uL (134-434); RBC 3.97 M/mm3 (4.00-5.60); RDW 12.5 % (11.9-15.9); WHITE BLOOD COUNT 7.9 K/mm3 (4.0-10.0)
[2021-10-18 09:23] LABS: PROTHROMBIN TIME (PATIENT) 11.5 SEC (9.7-13.0)
[2021-10-18 09:49] LABS: CALCIUM 8.6 mg/dL (8.5-10.1)
[2021-10-18 09:50] LABS: CREATININE 0.4 mg/dL (0.55-1.3); MAGNESIUM 1.9 mg/dL (1.8-2.4)
[2021-10-18 09:51] LABS: ALBUMIN 2.6 g/dl (3.4-5.0); BLOOD UREA NITROGEN 10.2 mg/dL (7-18)
[2021-10-18 09:52] LABS: TOT PROT 6.3 g/dl (6.4-8.2)
[2021-10-18 09:54] LABS: PHOSPHOROUS 3.6 mg/dL (2.5-4.9)
[2021-10-18 09:56] LABS: BILIRUBIN,TOTAL 0.4 mg/dL (0.2-1)
[2021-10-18] MEDS ORDERED: ENOXAPARIN NA (PORCINE) 40 MG/0.4 ML DISP.SYRIN SQ SCH (10:00)
[2021-10-18 14:47] VITALS: BP 141/86; PULSE 85; TEMP 98.9
[2021-10-18] MEDS ORDERED: VANCOMYCIN/WATER FOR INJ (PEG) 1,000 MG/200 ML BAG IVPB SCH (23:00)
== END 2021-10-18 16:36 | disposition short-term general hospital (02) | DRG 114 ==
LOC: JER 18:47 → JERBED 10-18 00:20 → J5S 10-18 03:16
PROVIDERS: ADMIT Internal Medicine; ATTEND Internal Medicine
DX: K04.7 Periapical abscess without sinus (principal); L02.01 Cutaneous abscess of face; L03.211 Cellulitis of face; E11.65 Type 2 diabetes mellitus with hyperglycemia; R22.0 Localized swelling, mass and lump, head; F17.200 Nicotine dependence, unspecified, uncomplicated; R51.9 Headache, unspecified; K08.89 Other specified disorders of teeth and supporting structures
CPT/HCPCS: 36415; 70487-TC; 80053; 80061; 82010; 82803; 82962; 83036; 83735; 84100; 85025; 85610; 87040; 93005; 93010; 99285-25; C9803-CS; U0003; U0005

== ENCOUNTER 2023-08-21 17:40 | Emergency (ER) | payer SELFPAY ==
[2023-08-21 17:55] VITALS: BP 128/67; PULSE 77; RESP 17; TEMP 98.9; BMI 31.7
== END 2023-08-21 18:17 | disposition home or self-care (01) ==
LOC: JER 17:40 → JERFT 17:40
DX: H57.12 Ocular pain, left eye (principal); H10.32 Unspecified acute conjunctivitis, left eye; H57.89 Other specified disorders of eye and adnexa
CPT/HCPCS: 99283-25

== ENCOUNTER 2023-09-18 01:22 | Emergency (ER) | payer SELFPAY ==
[2023-09-18 01:35] VITALS: TEMP 98.5; BMI 24.5
[2023-09-18] MEDS ORDERED: ACETAMINOPHEN 325 MG TABLET (FP) ONE (02:13)
[2023-09-18] MEDS: ACETAMINOPHEN 500 MG TABLET (FP) PO ONE (02:16)
[2023-09-18 02:20] LABS: THROAT:GRP A STREP NOT DETECTED (NOTDETECTED)
[2023-09-18] MEDS ORDERED: DEXAMETHASONE SOD PHOSPHATE 10 MG/1 ML VIAL ONE (02:52)
[2023-09-18] MEDS ORDERED: ALBUTEROL SO4 2.5/IPRATROPIUM 0.5 INH SOL 3 ML VIAL.NEB. NEB ONE (02:52)
[2023-09-18] MEDS: DEXAMETHASONE SOD PHOSPHATE 10 MG/1 ML VIAL IM ONE (02:58)
[2023-09-18] MEDS: ALBUTEROL SO4 2.5/IPRATROPIUM 0.5 INH SOL 3 ML VIAL.NEB. NEB ONE (02:58)
[2023-09-18] MEDS ORDERED: KETOROLAC TROMETHAMINE 15 MG/ML VIAL IVPUSH ONE (03:09)
[2023-09-18] MEDS ORDERED: KETOROLAC TROMETHAMINE 30 MG/1 ML VIAL ONE (03:16)
[2023-09-18] MEDS: KETOROLAC TROMETHAMINE 30 MG/1 ML VIAL IM ONE (03:21)
[2023-09-18 03:54] VITALS: BP 101/59; PULSE 102; RESP 19
== END 2023-09-18 04:33 | disposition home or self-care (01) ==
LOC: JER 01:22
PROC: 3E0233Z Introduction of Anti-inflammatory into Muscle, Percutaneous Approach (ICD-10-PCS; principal; 2023-09-18)
PROC: 3E023GC Introduction of Other Therapeutic Substance into Muscle, Percutaneous Approach (ICD-10-PCS; 2023-09-18)
PROC: 3E0F7GC Introduction of Other Therapeutic Substance into Respiratory Tract, Via Natural or Artificial Opening (ICD-10-PCS; 2023-09-18)
DX: J02.9 Acute pharyngitis, unspecified (principal); R09.89 Other specified symptoms and signs involving the circulatory and respiratory systems; R05.9 Cough, unspecified; J40 Bronchitis, not specified as acute or chronic; R51.9 Headache, unspecified; Z20.822 Contact with and (suspected) exposure to COVID-19
CPT/HCPCS: 0241U-QW; 71046-TC-FY; 87070; 87186; 87651; 99284-25; J1100

== ENCOUNTER 2023-12-26 19:12 | Emergency (ER) | payer SELFPAY ==
[2023-12-26 19:28] VITALS: BP 150/91; PULSE 87; RESP 20; TEMP 98.7; BMI 25.7
[2023-12-26] MEDS ORDERED: CEPHALEXIN MONOHYDRATE 500 MG CAPSULE (UD) ONE (20:56)
[2023-12-26] MEDS ORDERED: IBUPROFEN 600 MG TABLET (FP) PO ONE (20:56)
[2023-12-26] MEDS: IBUPROFEN 600 MG TABLET (FP) PO ONE (21:00)
[2023-12-26] MEDS: CEPHALEXIN MONOHYDRATE 500 MG CAPSULE (UD) PO ONE (21:00)
== END 2023-12-26 21:12 | disposition home or self-care (01) ==
LOC: JERFT 19:12
DX: L03.031 Cellulitis of right toe (principal); L03.032 Cellulitis of left toe
CPT/HCPCS: 73630-TC-LT; 73630-TC-RT-FY; 99284-25